=== PATIENT | male | born 1935 | race Caucasian/White ===

== ENCOUNTER → 2024-02-16 12:32 | Outpatient (REF) | payer OTHER, SELFPAY | LOC: HWRAD 12:32 | PROVIDERS: ATTENDING PHYSICIAN Specialist; FAMILY PHYSICIAN Family Medicine | DX: N18.4 Chronic kidney disease, stage 4 (severe) (principal) | CPT/HCPCS: 76770 ==

== ENCOUNTER → 2024-02-29 08:56 | Outpatient (REF) | payer OTHER, SELFPAY ==
[2024-02-29 09:28] LABS: Hematocrit 38.9 % (39.0-52.0); Hemoglobin 12.7 g/dL (13.0-18.0); Mean Corp Hgb Conc. 32.6 g/dL (33.0-37.0); Mean Corpuscular Hgb 26.8 pg (27.0-31.0); Mean Corpuscular Volume 82.1 fL (80.0-94.0); Nucleated Red Blood Cells % 0 % (-); Red Blood Cell Count 4.74 10^6/uL (4.70-6.10)
[2024-02-29 09:40] VITALS: BP 178/76; BP_SYST 73
[2024-02-29 09:43] LABS: INR 1.08; PT 13.8 Sec (11.4-14.6)
[2024-02-29 10:41] LABS: Mean Platelet Volume 10.3 fL (7.4-10.4); Platelet Count 90 10^3/uL (130-400)
[2024-02-29] MEDS: NSS (PRESERVATIVE FREE) 0.25 ML IV (10:58)
[2024-02-29] MEDS: FLUSH (NSS) 1 FLUSH IV (10:59)
[2024-02-29] MEDS: ATIVAN 0.5 MG IV (10:59)
[2024-02-29 11:50] VITALS: BP 189/84; BP_SYST 69
[2024-02-29 11:55] VITALS: BP 149/58; BP_SYST 66
[2024-02-29 12:00] VITALS: BP 159/76; BP_SYST 69
[2024-02-29 12:10] VITALS: BP 169/75; BP_SYST 75
[2024-02-29 12:27] VITALS: BP 169/75
[2024-02-29 12:58] LABS: Segmented Neutrophils 50 % (42-75)
[2024-02-29 12:59] LABS: Absolute Neutrophils -Man Diff 6.3 10^3/uL (1.4-6.5); Band Neutrophils 3 % (0-3); Blasts 4 % (-); Eosinophils 0 % (0-6); Lymphocytes 14 % (20-51); Metamyelocytes 6 % (-); Monocytes 21 % (2-9); Myelocytes 2 % (-); Promyelocytes 0 % (-)
[2024-02-29 13:00] LABS: Normal RBC Morphology Yes; Nucleated Red Blood Cells 3 (-); Platelets Checked Yes
[2024-02-29 13:01] LABS: Total Cells Counted 100
== END ==
LOC: RADI 08:56
PROVIDERS: ATTENDING PHYSICIAN Internal Medicine Hematology & Oncology; OTHER PHYSICIAN Physician Assistant; REFERRING PHYSICIAN Internal Medicine Critical Care Medicine
DX: C92.10 Chronic myeloid leukemia, BCR/ABL-positive, not having achieved remission (principal); D61.818 Other pancytopenia; D68.8 Other specified coagulation defects
CPT/HCPCS: 88305; 88311; 88312; 36415; 38222; 71046; 77012; 85025; 85610; 88313; 88341; 88342

== ENCOUNTER 2024-12-08 20:17 | Inpatient (IN) | payer OTHER, SELFPAY ==
[2024-12-08 12:17] VITALS: BP 130/50
--- NOTE | 2024-12-08 12:20 | ED.GENMED ---
ED Provider Triage
<Martinez Barreto PA-C - Last Filed: 12/08/24 12:21>
-
Patient seen by provider in Triage?: Seen in Triage
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 He notes that he is itchy all over but now his arms are starting to swell. Yesterday he could make it from 1 room to the other because he got fatigued and
short of breath. No chest pain.
Vital signs are stable through triage. Will start workup with EKG labs chest x-ray
Seen by healthcare provider triage but warrants further assessment
History of Present Illness
<Martinez Barreto PA-C - Last Filed: 12/08/24 12:21>
General
Chief Complaint: Skin Problem
Time Seen by Provider: 12/08/24 16:30
<David Brewer MD - Last Filed: 12/09/24 09:13>
General
Source: patient and spouse
Exam Limitations: none
History of Present Illness
History of Present Illness:
89-year-old male brought in for swelling of the arms bilaterally generalized itching. No chest pain shortness of breath abdominal pain or other complaints. Complicated medical history.
Past History
<Martinez Barreto PA-C - Last Filed: 12/08/24 12:21>
Past History
ED Past Medical History: Arrthythmia (SVT), Cancer (CML, thrombocytopenia), GERD (Hiatal hernia), HTN, Renal failure (Chronic kidney disease) and Other (CML)
ED Past Surgical History: Appendectomy and Orthopedic
Social History
Tobacco: Non-smoker
Alcohol: None
Personal:
Living: with family
Employment: Retired
Family History
Family History: Other (Noncontributory)
Review of Systems
<David Brewer MD - Last Filed: 12/09/24 09:13>
Review of Systems
Constitutional: Denies fever or chills
Respiratory: Reports no symptoms
Cardiac: Reports no symptoms
ABD/GI: Reports no symptoms
Phy Exam
<David Brewer MD - Last Filed: 12/09/24 09:13>
Physical Exam
Physical Exam:
GENERAL: Alert and oriented in no apparent distress
EYE: Orbits normal.
NECK: Supple
CARDIAC: Regular rate and rhythm without any obvious murmurs.
LUNGS: Clear breath sounds,normal
ABDOMEN: Soft, without focal tenderness or distention
NEUROLOGICAL: Alert and oriented , grossly non-focal
SKIN: Warm and dry, areas of ecchymosis to both arms. Mild area of erythema to the left mid arm. Multiple areas of excoriations.
MUSCULOSKELETAL: Edema left arm greater than right
PSYCH: Normal and appropriate interaction.
Course
<Martinez Barreto PA-C - Last Filed: 12/08/24 12:21>
Orders/Labs/Results
Orders:
Orders
12/08/24 12:19
CR Chest - 2 Views Urgent
Comment:
Reason For Exam: sob
12/08/24 12:22
Electrocardiogram (*1) Urgent
Reason for Study: Fatigue / Weakness
EKG- Treatment ONCE
12/08/24 12:31
Complete Blood Count/With Diff Urgent
Comprehensive Metabolic Panel Urgent
Manual Differential Urgent
NT-proBNP Urgent
12/08/24 Dinner
Potassium, 2 Gram
At Your Request: Full Participation
12/08/24 16:51
US Periph Venous UPPER Ext LT Urgent
Comment:
Reason For Exam: swelling
12/08/24 17:17
US Renal With Bladder Urgent
Comment: bladder not full ok, looking at ureteral jets
Reason For Exam: renal failure
12/08/24 18:44
Fibrinogen Routine
LDH Routine
PT/INR [Prothrombin Time] Routine
PTT Routine
Phosphorus Routine
Uric Acid Routine
12/08/24 19:20
Simmons Placement- Treatment ONCE
Reason for insertion: Acute Retention
12/08/24 19:53
Admit/Transfer Patient As Directed
Co-Sign Provider:
Level of Care: Inpatient admission
Assign to:: Medical/Surgical
Physician / Group: hospitalist
Diagnosis: cellulitis, kim, CML
Reason for Hospitalization: KIM
Expected length of stay greater than two midnights?: Yes
ELOS- Estimated Length of Stay in days: 2
I certify the patient meets the requirements for IP care: Yes
PRN Pain Medication Management As Directed
May give lesser potent ordered pain med per pt: Yes
preference::
Protocol:: Medication orders for pain may be administered in a
manner that supports deferring to patient preference
when the pt is:
- Requesting an ordered lesser potent pain medication.
Least to most potent pain medications are defined
as: acetaminophen < NSAID < tramadol < opioids
(morphine, oxycodone, hydromorphone).
- Requesting a lesser dose of the same medication IF
ORDERED.
- Requesting a less intrusive route of administration
if both routes are prescribed by the provider (PO <
IV).
12/08/24 19:55
Code Status As Directed
Resuscitation Status: Full Code
12/08/24 20:03
Hydroxyurea [Hydrea] 500 mg PO NOW STA
Sodium Zirconium Cyclosilicate [Lokelma] 10 gram PO NOW STA
12/08/24 20:18
Urinalysis Reflex To Culture Urgent
Date Specimen was Collected: 12/08/24
Time Specimen was Collected: 20:16
Urine Microscopic Reflex Cult Urgent
Urine Microscopic Routine
Date Specimen was Collected: 12/08/24
Time Specimen was Collected: 20:16
Urine Protein/Creat Ratio (Random) [Protein/Creat Ratio (Random)] Routine
Date Specimen was Collected: 12/08/24
Time Specimen was Collected: 20:17
Urine Sodium Routine
Date Specimen was Collected: 12/08/24
Time Specimen was Collected: 20:17
Urine Culture Routine
CANDY Source: Urine
Specimen Description:
Obtained by: Bladder
Date Specimen was Collected: 12/08/24
Time Specimen was Collected: 20:16
12/08/24 21:11
Acetaminophen [Tylenol] 650 mg PO Q4HPRN PRN
Bisacodyl [Dulcolax] 10 mg RECTAL [id number] PRN
HydrOXYZINE [Atarax] 12.5 mg PO TIDPRN PRN
Lactated Ringers [Lr] 1,000 ml IV 100 mls/hr
Metoprolol Xl [Toprol Xl] 25 mg PO BID
Ondansetron Injectable [Zofran] 4 mg IV Q6HPRN PRN
Polyethylene Glycol Powder [Miralax] 17 grams PO DAILYPRN PRN
12/08/24 21:11
Activity As Directed
Activity Level: With Assistance
Bladder Scan As Directed
Follow Bladder Retention/Intermittent Cath Algorithm?: Yes
PRN if no void in __ hours: 6
Frequency: Per Retention Algorithm
If Bladder Scan Result >: 400
then:: Straight cath
Straight Cath As Directed
Frequency: Per Retention Algorithm
Additional Instructions: straight cath as needed per acute urinary retention algorithm for 24 hrs
Additional Instructions: for bladder scan greater than 400 mL
Vital Signs As Directed
Frequency: Per unit guidelines
Pulse Ox/spot Check [RESP] Routine
Quantity: 1
DX Deep Vein Thrombosis Video Routine
12/08/24 22:00
Bacitracin/Polymyxin B [Polysporin Ointment] 1 applic TOPICAL BID
Docusate W/Senna [Senokot-S] 1 tablet PO HS
Gabapentin [Neurontin] 100 mg PO HS
12/08/24 23:55
BMP [Basic Metabolic Panel] Routine
CPK [Creatine Phosphokinase] Routine
12/09/24 00:00
Heparin 5,000 units SC Q8
12/09/24 06:19
Basic Metabolic Panel IN AM
Complete Blood Count/No Diff IN AM
Creatine Phosphokinase IN AM
Leukemia/Lymphoma Phenotyping [S] Urgent
12/09/24 08:00
Finasteride [Proscar] 5 mg PO DAILY
Hydroxyurea [Hydrea] 500 mg PO BID
12/09/24 10:00
CeFAZolin 1 GRAM [Ancef] 1 gram in 5 ml IV Q12H
Abnormal Lab Results
12/08/24 12/08/24
12:31 18:44
WBC 41.7 H* 10^3/uL
(4.8-10.8)
RBC 3.71 L 10^6/uL
(4.70-6.10)
Hgb 10.9 L g/dL
(13.0-18.0)
Hct 34.6 L %
(39.0-52.0)
MCHC 31.5 L g/dL
(33.0-37.0)
RDW 21.1 H %
(11.5-14.5)
MPV 10.5 H fL
(7.4-10.4)
Abs Neuts (Manual) 22.5 H 10^3/uL
(1.4-6.5)
Band Neutrophils 11 H %
(0-3)
Lymphocytes (Manual) 7 L %
(20-51)
Blast Cells 12 H* %
(-)
PT 15.3 H Sec
(11.4-14.6)
APTT 43.4 H Sec
(23.4-35.0)
Sodium 131 L mmol/L
(135-145)
Potassium 5.8 H mmol/L
(3.5-5.1)
Carbon Dioxide 17 L mmol/L
(22-30)
BUN 44 H mg/dl
(9-20)
Creatinine 4.6 H* mg/dL
(0.7-1.3)
Glucose 119 H mg/dl
(70-99)
Uric Acid 10.8 H mg/dl
(3.5-8.5)
Phosphorus 5.3 H mg/dl
(2.5-4.5)
Lactate Dehydrogenase 832 H U/L
(120-246)
12/08/24 12:31
12/08/24 12:31
Vital Signs
Initial and Last Documented VS:
Initial Vital Signs
Temp Pulse Resp BP Pulse Ox
98 F 83 16 130/50 93
12/08/24 12:17 12/08/24 12:17 12/08/24 12:17 12/08/24 12:17 12/08/24 12:17
Last Documented Vital Signs
Temp Pulse Resp BP Pulse Ox
98.2 F 81 18 114/90 95
12/09/24 08:20 12/09/24 09:06 12/09/24 08:20 12/09/24 09:06 12/09/24 08:20
<David Brewer MD - Last Filed: 12/09/24 09:13>
Orders/Labs/Results
Orders:
Orders
12/08/24 12:19
CR Chest - 2 Views Urgent
Comment:
Reason For Exam: sob
12/08/24 12:22
Electrocardiogram (*1) Urgent
Reason for Study: Fatigue / Weakness
EKG- Treatment ONCE
12/08/24 12:31
Complete Blood Count/With Diff Urgent
Comprehensive Metabolic Panel Urgent
Manual Differential Urgent
NT-proBNP Urgent
12/08/24 Dinner
Potassium, 2 Gram
At Your Request: Full Participation
12/08/24 16:51
US Periph Venous UPPER Ext LT Urgent
Comment:
Reason For Exam: swelling
12/08/24 17:17
US Renal With Bladder Urgent
Comment: bladder not full ok, looking at ureteral jets
Reason For Exam: renal failure
12/08/24 18:44
Fibrinogen Routine
LDH Routine
PT/INR [Prothrombin Time] Routine
PTT Routine
Phosphorus Routine
Uric Acid Routine
12/08/24 19:20
Simmons Placement- Treatment ONCE
Reason for insertion: Acute Retention
12/08/24 19:53
Admit/Transfer Patient As Directed
Co-Sign Provider:
Level of Care: Inpatient admission
Assign to:: Medical/Surgical
Physician / Group: hospitalist
Diagnosis: cellulitis, kim, CML
Reason for Hospitalization: KIM
Expected length of stay greater than two midnights?: Yes
ELOS- Estimated Length of Stay in days: 2
I certify the patient meets the requirements for IP care: Yes
PRN Pain Medication Management As Directed
May give lesser potent ordered pain med per pt: Yes
preference::
Protocol:: Medication orders for pain may be administered in a
manner that supports deferring to patient preference
when the pt is:
- Requesting an ordered lesser potent pain medication.
Least to most potent pain medications are defined
as: acetaminophen < NSAID < tramadol < opioids
(morphine, oxycodone, hydromorphone).
- Requesting a lesser dose of the same medication IF
ORDERED.
- Requesting a less intrusive route of administration
if both routes are prescribed by the provider (PO <
IV).
12/08/24 19:55
Code Status As Directed
Resuscitation Status: Full Code
12/08/24 20:03
Hydroxyurea [Hydrea] 500 mg PO NOW STA
Sodium Zirconium Cyclosilicate [Lokelma] 10 gram PO NOW STA
12/08/24 20:18
Urinalysis Reflex To Culture Urgent
Date Specimen was Collected: 12/08/24
Time Specimen was Collected: 20:16
Urine Microscopic Reflex Cult Urgent
Urine Microscopic Routine
Date Specimen was Collected: 12/08/24
Time Specimen was Collected: 20:16
Urine Protein/Creat Ratio (Random) [Protein/Creat Ratio (Random)] Routine
Date Specimen was Collected: 12/08/24
Time Specimen was Collected: 20:17
Urine Sodium Routine
Date Specimen was Collected: 12/08/24
Time Specimen was Collected: 20:17
Urine Culture Routine
CANDY Source: Urine
Specimen Description:
Obtained by: Bladder
Date Specimen was Collected: 12/08/24
Time Specimen was Collected: 20:16
12/08/24 21:11
Acetaminophen [Tylenol] 650 mg PO Q4HPRN PRN
Bisacodyl [Dulcolax] 10 mg RECTAL [id number] PRN
HydrOXYZINE [Atarax] 12.5 mg PO TIDPRN PRN
Lactated Ringers [Lr] 1,000 ml IV 100 mls/hr
Metoprolol Xl [Toprol Xl] 25 mg PO BID
Ondansetron Injectable [Zofran] 4 mg IV Q6HPRN PRN
Polyethylene Glycol Powder [Miralax] 17 grams PO DAILYPRN PRN
12/08/24 21:11
Activity As Directed
Activity Level: With Assistance
Bladder Scan As Directed
Follow Bladder Retention/Intermittent Cath Algorithm?: Yes
PRN if no void in __ hours: 6
Frequency: Per Retention Algorithm
If Bladder Scan Result >: 400
then:: Straight cath
Straight Cath As Directed
Frequency: Per Retention Algorithm
Additional Instructions: straight cath as needed per acute urinary retention algorithm for 24 hrs
Additional Instructions: for bladder scan greater than 400 mL
Vital Signs As Directed
Frequency: Per unit guidelines
Pulse Ox/spot Check [RESP] Routine
Quantity: 1
DX Deep Vein Thrombosis Video Routine
12/08/24 22:00
Bacitracin/Polymyxin B [Polysporin Ointment] 1 applic TOPICAL BID
Docusate W/Senna [Senokot-S] 1 tablet PO HS
Gabapentin [Neurontin] 100 mg PO HS
12/08/24 23:55
BMP [Basic Metabolic Panel] Routine
CPK [Creatine Phosphokinase] Routine
12/09/24 00:00
Heparin 5,000 units SC Q8
12/09/24 06:19
Basic Metabolic Panel IN AM
Complete Blood Count/No Diff IN AM
Creatine Phosphokinase IN AM
Leukemia/Lymphoma Phenotyping [S] Urgent
12/09/24 08:00
Finasteride [Proscar] 5 mg PO DAILY
Hydroxyurea [Hydrea] 500 mg PO BID
12/09/24 10:00
CeFAZolin 1 GRAM [Ancef] 1 gram in 5 ml IV Q12H
Abnormal Lab Results
12/08/24 12/08/24
12:31 18:44
WBC 41.7 H* 10^3/uL
(4.8-10.8)
RBC 3.71 L 10^6/uL
(4.70-6.10)
Hgb 10.9 L g/dL
(13.0-18.0)
Hct 34.6 L %
(39.0-52.0)
MCHC 31.5 L g/dL
(33.0-37.0)
RDW 21.1 H %
(11.5-14.5)
MPV 10.5 H fL
(7.4-10.4)
Abs Neuts (Manual) 22.5 H 10^3/uL
(1.4-6.5)
Band Neutrophils 11 H %
(0-3)
Lymphocytes (Manual) 7 L %
(20-51)
Blast Cells 12 H* %
(-)
PT 15.3 H Sec
(11.4-14.6)
APTT 43.4 H Sec
(23.4-35.0)
Sodium 131 L mmol/L
(135-145)
Potassium 5.8 H mmol/L
(3.5-5.1)
Carbon Dioxide 17 L mmol/L
(22-30)
BUN 44 H mg/dl
(9-20)
Creatinine 4.6 H* mg/dL
(0.7-1.3)
Glucose 119 H mg/dl
(70-99)
Uric Acid 10.8 H mg/dl
(3.5-8.5)
Phosphorus 5.3 H mg/dl
(2.5-4.5)
Lactate Dehydrogenase 832 H U/L
(120-246)
12/08/24 12:31
12/08/24 12:31
Vital Signs
Initial and Last Documented VS:
Initial Vital Signs
Temp Pulse Resp BP Pulse Ox
98 F 83 16 130/50 93
12/08/24 12:17 12/08/24 12:17 12/08/24 12:17 12/08/24 12:17 12/08/24 12:17
Last Documented Vital Signs
Temp Pulse Resp BP Pulse Ox
98.2 F 81 18 114/90 95
12/09/24 08:20 12/09/24 09:06 12/09/24 08:20 12/09/24 09:06 12/09/24 08:20
<David Brewer MD - Last Filed: 12/09/24 09:13>
MDM/Problems Addressed
Differential Diagnosis Includes:
Complicated patient with multiple issues. Acute on chronic renal failure. Post renal component. Simmons to be placed. Possible cellulitis of the left arm. Ancef ordered. Possible CLL/blast issue. This is being addressed by hematology oncology.
<David Brewer MD - Last Filed: 12/09/24 09:13>
*Pulse Oximetry
Patient hypoxic: no
Comment: No DVT left arm. Chronic renal disease. Negative chest x-ray
*EKG
Interpreted by ED Provider?: Yes
Interpretation: normal
Comparison EKG: no changes
Heart Rate: 82
Rate: normal
Rhythm: sinus
[place]: normal axis
Interval: normal interval
QRS Pattern: normal QRS
Ischemia: no ischemia
*Critical Care Note
Total Time (30-74mins, 75-104mins- exclusive of procedures): Not Applicable
<David Brewer MD - Last Filed: 12/09/24 09:13>
Update Note
Update Note:
Discussed with hematology oncology. Discussed with nephrology. Discussed with hospitalist. Family updated.
ED Attending Note
<Martinez Barreto PA-C - Last Filed: 12/08/24 12:21>
-
Portions of this chart may have been created with voice recognition software.� Occasional wrong word or��sound alike� substitutions may have occurred due to the inherent limitations of voice recognition software.
Discharge Plan
Departure
Patient Disposition: Admit
Date of Disposition: 12/08/24
Time of Disposition: 19:25
Presentation/result/management discussed w/ accepting MD/DO: Oncology/nephrology
Discharge Problem:
Acute renal failure, Chronic renal insufficiency, Possible blast crisis, Urinary retention, Cellulitis left arm
Interventions
Interventions:
*Risk Screen - Suicide Last Done: 12/08/24 12:17
*Neglect/Abuse Screening Last Done: 12/08/24 12:17
ED- Fall Risk Assessment Last Done: 12/08/24 21:15
*Nursing Disposition Last Done: 12/09/24 00:19
ED-Skin Assessment Last Done: 12/08/24 21:15
Discharge Date and Time
Discharge Date/Time: 12/09/24 00:19
[2024-12-08 12:52] LABS: Hematocrit 34.6 % (39.0-52.0); Hemoglobin 10.9 g/dL (13.0-18.0); Mean Corp Hgb Conc. 31.5 g/dL (33.0-37.0); Mean Corpuscular Hgb 29.4 pg (27.0-31.0); Mean Corpuscular Volume 93.3 fL (80.0-94.0); Mean Platelet Volume 10.5 fL (7.4-10.4); Platelet Count 135 10^3/uL (130-400); Red Blood Cell Count 3.71 10^6/uL (4.70-6.10); Red Cell Dist. Width 21.1 % (11.5-14.5); White Blood Cell Count 41.7 10^3/uL (4.8-10.8)
[2024-12-08 13:03] LABS: ALT (SGPT) 18 U/L (0-50); AST (SGOT) 29 U/L (17-59); Albumin 4.2 g/dl (3.5-5.0); Alkaline Phosphatase 118 U/L (38-126); Blood Urea Nitrogen 44 mg/dl (9-20); Calcium 8.9 mg/dl (8.4-10.2); Carbon Dioxide 17 mmol/L (22-30); Chloride 100 mmol/L (98-107); Glucose 119 mg/dl (70-99); Potassium 5.8 mmol/L (3.5-5.1); Sodium 131 mmol/L (135-145); Total Bilirubin 0.5 mg/dl (0.2-1.3); Total Protein 7.3 g/dl (6.3-8.2)
[2024-12-08 13:09] LABS: NT-proBNP 578 pg/ml
[2024-12-08 14:12] LABS: Absolute Neutrophils -Man Diff 22.5 10^3/uL (1.4-6.5); Band Neutrophils 11 % (0-3); Lymphocytes 7 % (20-51); Segmented Neutrophils 43 % (42-75)
[2024-12-08 14:13] LABS: Eosinophils 1 % (0-6); Metamyelocytes 8 % (-); Monocytes 9 % (2-9); Myelocytes 9 % (-); Platelets Checked Yes
[2024-12-08 14:14] LABS: Anisocytosis 1+; Hypochromasia 1+; Normal RBC Morphology No; Ovalocytes 1+; Polychromasia 1+; Total Cells Counted 100
[2024-12-08 14:17] LABS: Blasts 12 % (-)
[2024-12-08 17:30] VITALS: BP 136/55
[2024-12-08 19:03] LABS: INR 1.18; PT 15.3 Sec (11.4-14.6)
[2024-12-08 19:04] LABS: APTT 43.4 Sec (23.4-35.0); Fibrinogen 279 MG/DL (199-459)
[2024-12-08 19:14] LABS: LDH 832 U/L (120-246); Phosphorus 5.3 mg/dl (2.5-4.5); Uric Acid 10.8 mg/dl (3.5-8.5)
--- NOTE | 2024-12-08 19:35 | HPS.HSE ---
Family Physician
-
Family Physician: Christophe Navas
Chief Complaint
-
Left upper extremity swelling and redness
History of Present Illness
89-year-old male with past medical history significant for CML, hypertension, CKD stage IV, chronic thrombocytopenia and SVT will presents to the emergency department with
redness and swelling of the left upper extremity.
Patient reports onset of HTN about 3 weeks ago. Reports generalized itchiness of her lower extremities. A close. Itching and has several breaks in the skin due to the itching. He denies any new medication changes. He denies any new exposures.
He denies any recent travel.
Family reports that the patient had similar itching episode about 10 years ago with extensive workup. There was no diagnosis and this resolved on its own. He saw dermatology on Wednesday 5 days ago and was told that this episode was different from
his prior itching episode and likely due to his renal dysfunction.
Over the last 4 days he has been developing increasing swelling and redness in the arm. He denies any tenderness. He denies any fevers or chills. He has intermittent numbness in the hands bilaterally. He denies any ankle swelling, abdominal
distention, dysuria or hematuria.
In the emergency department the patient was hemodynamically stable and afebrile blood pressure 136/55, temp 98.5 satting 99% on room air. Had a chest x-ray showing no acute infiltrate with stable basilar interstitial fibrosis. Doppler ultrasound
of the left upper extremity was negative for DVT. He had a renal u/s which showed bilateral cortical thinning, a partially filled bladder which appears grossly unremarkable, no hydronephrosis, no renal calculi. Bilateral ureterovesicular jets were
not visualized. CBC notable for a leukocytosis to 41,000, hemoglobin 10.9 and platelet count of 135. He had 12% blast. PT/INR was normal. He has a hyperkalemia to 5.8, BUN 44 creatinine 4.6. Uric acid was 10.8. LDH 832.
Medical History
Past Medical History
Past Medical History: Reports Arrhythmia (SVT), Cancer (CML), GERD, HTN and Renal Failure (CKD bl Cr 2.5)
Past Surgical History: Reports Appendectomy and Orthopedic
Social History
Tobacco: Non-smoker
Alcohol: None
Drug: None
Personal:
Living: With Family
Employment: Retired
Family History
Family History: Not pertinent
Allergies / Home Medications
Allergies reflects when Allergies were last updated in [employer].
Home Medications with original date entered in [employer]
Allergy/Medication List:
Allergies
Allergy/AdvReac Type Severity Reaction Status Date / Time
Iodinated Contrast Media Allergy Hives Verified 12/08/24 12:17
Home Medications
metoprolol succinate 25 mg tablet,extended release 24 hr 25 mg PO BID Blood pressure 10/24/22
sennosides 8.6 mg-docusate sodium 50 mg tablet (Colace 2-In-1) 1 tab-cap PO DAILY 02/29/24
vitamin K 1 tab PO DAILY 02/29/24
Review of Systems
-
History Source: Patient and Family
Constitutional: Reports No Symptoms
EENT: Reports No Symptoms
Respiratory: Reports No Symptoms
Cardiac: Reports No Symptoms
Abdomen/GI: Reports No Symptoms
: Reports No Symptoms
Musculoskeletal: Reports No Symptoms
Skin: Reports Itching and Rash
Neurological: Reports No Symptoms
Endocrine: Reports No Symptoms
Hematologic/Lymphatic: Reports No Symptoms
Psych: Reports No Symptoms
Physical Exam
Vital Signs
Vital Signs
Temp Pulse Resp BP Pulse Ox
98 F 79 19 136/55 99
12/08/24 12:17 12/08/24 17:30 12/08/24 17:30 12/08/24 17:30 12/08/24 17:30
Physical Exam
General: Well Developed, Well Nourished and No Apparent Distress
HEENT: NormoCephalic, Anicteric, Moist mucous membranes and Atraumatic
Respiratory: Clear
Cardiac: S1/S2 and Regular Rhythm
Breast: Deferred by me
GI: Soft, Non Tender, Non Distended and Normal Bowel Sounds
Rectal: Brown
Genito-urinary: Deferred by me
Musculoskeletal: No Clubbing, No Cyanosis and Edema, Left Upper Extremity (1+)
Skin: Warm and Rash (extensive erythema with some petechia in the LUE, with edema, no TTP to palpation, pruritic)
Neuro: AO x 3 and Nonfocal/grossly intact
Psych: Calm
Laboratory Results
-
12/08/24 12:31
12/08/24 12:31
Laboratory Results
PT 15.3 Sec (11.4-14.6) H 12/08/24 18:44
INR 1.18 12/08/24 18:44
APTT 43.4 Sec (23.4-35.0) H 12/08/24 18:44
Total Bilirubin 0.5 mg/dl (0.2-1.3) 12/08/24 12:31
AST 29 U/L (17-59) 12/08/24 12:31
ALT 18 U/L (0-50) 12/08/24 12:31
Alkaline Phosphatase 118 U/L (38-126) 12/08/24 12:31
Impression/Plan
-
IMPRESSION:
89 y.o male with h/o HTN, CKD, and CML presenting with LUE edema and erythema after several weeks of generalized pruritus found to have significant rise in WBC to 41 from 12. Also found to have KIM with doubling of cr to 4.5 from 2.5. The rash
appears to be dermatitis but cannot rule out cellulitis.
PLAN:
1. Arm swelling and erythema w/ leukocytosis - Possible cellulitis. No signs of sepsis. No DVT in the arm.
- admit to med/surg
- start iv cefazolin
- keep arm elevated
- supportive care with anti-itching therapies
- id consult
2. Pruritis and leukocytosis with 12% blasts, LDH elevated, raising concern for accelerated CML versus infection.
- appreciate oncology input
- flow cytometry (leukemia/lymphoma phenotyping)
- start hydroxyuria 500 mg bid
- gabapentin 100mg HS for now
- atarax prn itching
- Oncology consultation
3. KIM on CKD - Appears euvolemic. No outlet obstruction on renal u/s. bilateral ureterovesical jets not visualized suggesting severe retention. No PVR on b/s. Uric acid only 10.8. Mild hyperkalemia. Possible post-renal versus less likely TLS
and dehydration
- check cpk, u/a and urine protein
- hold lisinopril
- bladder scans to rule out retention,
- LR hydration for now
- avoid nephrotoxins
- nephrology consultation
- lokelma x 1 tonight for hyperkalemia
4. HTN
- hold lisinopril
- continue metoprolol
DVT PPX - heparin sq
Code status - full code
[2024-12-08 20:27] LABS: Urine Albumin Trace (Neg - Trace); Urine Bilirubin Negative (Negative); Urine Character Clear (Clear); Urine Color Yellow; Urine Glucose Negative (Negative); Urine Ketone Negative (Negative); Urine Leukocyte Negative (Negative); Urine Nitrite Negative (Negative); Urine Occult Blood Trace (Negative); Urine Specific Gravity 1.015 (<1.030); Urine Urobilinogen Negative (Neg - 1+)
[2024-12-08] MEDS: LOKELMA 10 GRAM PO (20:37)
[2024-12-08] MEDS: HYDREA 500 MG PO (20:37)
[2024-12-08 21:02] LABS: Urine Squamous Cell >30 /LPF (Few)
[2024-12-08 21:03] LABS: Urine Red Blood Cell 0-2 /HPF (0-2); Urine White Cell 0-2 /HPF (0-5)
[2024-12-08 21:35] LABS: Protein/creatinine Ratio 0.4; Urine Protein 47 mg/dl; Urine Sodium 11 mmol/L (30-90)
[2024-12-08] MEDS: POLYSPORIN OINTMENT 1 APPLIC TOPICAL (21:37)
[2024-12-08] MEDS: LR 1000 IV (21:38)
[2024-12-08] MEDS: TOPROL XL 25 MG PO (21:39)
[2024-12-08] MEDS: SENOKOT-S 1 TABLET PO (21:39)
[2024-12-08] MEDS: ANCEF 5 IV (21:39)
[2024-12-08] MEDS: ATARAX 12.5 MG PO (21:44)
[2024-12-08 21:48] VITALS: BP 92/76
[2024-12-08 22:12] VITALS: BP 134/52
[2024-12-08] MEDS: NEURONTIN 100 MG PO (22:41)
[2024-12-09] MEDS: HEPARIN 5000 UNITS SC ×4 (00:32→23:19)
[2024-12-09 01:06] VITALS: BP 149/69; BMI 32.4
[2024-12-09 01:40] LABS: Blood Urea Nitrogen 47 mg/dl (9-20); Calcium 8.5 mg/dl (8.4-10.2); Carbon Dioxide 18 mmol/L (22-30); Chloride 101 mmol/L (98-107); Creatine Phosphokinase 121 U/L (55-170); Estimated Creatinine Clearance 12 ml/min; Glucose 107 mg/dl (70-99); Potassium 5.2 mmol/L (3.5-5.1); Sodium 132 mmol/L (135-145)
[2024-12-09] MEDS: ATARAX 12.5 MG PO ×2 (01:52→10:12)
[2024-12-09 06:54] LABS: Hematocrit 28.1 % (39.0-52.0); Hemoglobin 9.2 g/dL (13.0-18.0); Mean Corp Hgb Conc. 32.7 g/dL (33.0-37.0); Mean Corpuscular Volume 91.5 fL (80.0-94.0); Mean Platelet Volume 10.1 fL (7.4-10.4); Platelet Count 108 10^3/uL (130-400); Red Blood Cell Count 3.07 10^6/uL (4.70-6.10); Red Cell Dist. Width 20.6 % (11.5-14.5); White Blood Cell Count 31.7 10^3/uL (4.8-10.8)
[2024-12-09 07:04] LABS: Blood Urea Nitrogen 46 mg/dl (9-20); Calcium 8.1 mg/dl (8.4-10.2); Carbon Dioxide 18 mmol/L (22-30); Chloride 102 mmol/L (98-107); Creatine Phosphokinase 108 U/L (55-170); Estimated Creatinine Clearance 13 ml/min; Glucose 88 mg/dl (70-99); Potassium 4.9 mmol/L (3.5-5.1); Sodium 131 mmol/L (135-145); eGFR 12.23
--- NOTE | 2024-12-09 07:22 | CON.ONC ---
Addendum entered and electronically signed by Eunice Lloyd MD 12/09/24 15:17:
Pt seen and examined, chart reviewed.
Progressive leukocytosis likely due to infection.
Blast increase reactive.
No evidence of tumor lysis.
Hydrea not needed, d/c.
Thank you for consult, will follow along with you.
Original Note:
Impression
Impression
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
pathology smear review with 12% blasts, ANC 22.5
KIM on CKD
acute on chronic anemia likely multifactorial with cellulitis, renal insufficiency, dilution, and dose of Hydrea. With normal LFTs, hemolysis less likely
Plan
Plan
Abx per primary service
f/u peripheral flow
Daily CBC, suspect acute on chronic leukocytosis in setting of infection and will improve with treatment of infection
f/u ID consult, f/u nephrology consult
check iron studies, b12, folate, retic
Awaiting Dr. Alesia Tang input to decide if hydrea should be continued
Patient History
History of Present Illness
89yo M with CMML on observation with Dr. Summers who presented with LUE redness and swelling. His LUE symptoms began approximately 4-5 days ago. He denies any trauma or injury to his LUE. He denies fever or chills. CBC notable for a leukocytosis
to 41,000, hemoglobin 10.9 and platelet count of 135, potassium 5.8, BUN 44 creatinine 4.6, Uric acid was 10.8, LDH 832. LUE negative for DVT. He has been admitted, started on IVF, IV abx, and given 1 dose of hydrea 500mg PO.
Clinically, he denies fever, chills, cough, chest pain, sob, tripp, n/v/d/c, abdominal pain, unintentional weight loss, or headaches. 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 He continues with pruritis.
Past-Medical/Surgical History
PMH CMML 2017, melanoma 2011, HTN, CKD, obesity, HLD, DM2
PSH melanoma excision, cataracts, TKR, appendectomy, right knee meniscus,
Family: sibling with breast cancer
Social quit smoking 2004, denies ETOH or recreational drugs. Lives with , retired.
Patient Medication
�Medication �Instructions �Recorded �Confirmed �Last Taken �Type
metoprolol succinate 25 mg 25 mg PO BID Blood pressure 10/24/22 12/08/24 02/29/24 History
tablet,extended release 24 hr
sennosides 8.6 mg-docusate sodium 1 tab-cap PO HS 02/29/24 12/08/24 02/28/24 History
50 mg tablet (Colace 2-In-1)
vitamin K2 (MK-4) 100 mcg tablet 100 mcg PO HS 02/29/24 12/08/24 Unknown History
finasteride 5 mg tablet 5 mg PO DAILY 12/08/24 12/08/24 Unknown History
lisinopril 5 mg tablet 5 mg PO DAILY 12/08/24 12/08/24 Unknown History
neomycin-bacitracn Zn-polymyx 3.5 1 applic topical BID around 12/08/24 12/08/24 Unknown History
mg-400 unit-5,000 unit/gram top nostrils
oint (Neosporin ([id number]))
sodium chloride-aloe vera nasal 1 applic topical BID nasal dryness 12/08/24 12/08/24 Unknown History
gel (Saline Nasal (aloe vera) gel)
Active Medications
Generic Name Dose Route Start Last Admin
Trade Name Freq PRN Reason Stop Dose Admin
Acetaminophen 650 mg 12/08/24 21:11
Acetaminophen 325 Mg Tablet PO 01/05/25 21:10
Q4HPRN PRN
mild pain/MELARA/temp> 100.4F
Bacitracin/Polymyxin B Sulfate 1 applic 12/08/24 22:00 12/08/24 21:37
Bacitracin/Polymyxin B (Ointment) Unit Dose Packet TOPICAL 1 applic
BID FLOWER Administration
Bisacodyl 10 mg 12/08/24 21:11
Bisacodyl 10 Mg Rectal Suppository RECTAL 01/05/25 21:10
[id number] PRN
constipation
Finasteride 5 mg 12/09/24 08:00
Finasteride 5 Mg Tablet PO 01/06/25 07:59
DAILY FLOWER
Gabapentin 100 mg 12/08/24 22:00 12/08/24 22:41
Gabapentin 100 Mg Capsule PO 01/05/25 21:59 100 mg
HS FLOWER Administration
Heparin Sodium 5,000 units 12/09/24 00:00 12/09/24 00:32
Heparin 5,000 Units/Ml 1 Ml Vial SC 01/06/25 00:00 5,000 units
Q8 FLOWER Administration
Hydroxyurea 500 mg 12/09/24 08:00
Hydroxyurea 500 Mg Capsule PO 01/06/25 07:59
BID FLOWER
Hydroxyzine HCl 12.5 mg 12/08/24 21:11 12/09/24 01:52
Hydroxyzine 25 Mg Tablet PO 01/05/25 21:10 12.5 mg
TIDPRN PRN Administration
itching
Cefazolin Sodium 1 gram in 5 mls @ 60 mls/hr 12/09/24 10:00
Ancef IV
Q12H FLOWER
Metoprolol Succinate 25 mg 12/08/24 21:11 12/08/24 21:39
Metoprolol 25 Mg Extended Release Tablet PO 01/05/25 21:10 25 mg
BID FLOWER Administration
Ondansetron HCl 4 mg 12/08/24 21:11
Ondansetron 4 Mg/2 Ml Vial IV 01/05/25 21:10
Q6HPRN PRN
nausea and vomiting
Polyethylene Glycol 17 grams 12/08/24 21:11
Polyethylene Glycol Powder 17 Grams Packet PO 01/05/25 21:10
DAILYPRN PRN
constipation
Senna/Docusate Sodium 1 tablet 12/08/24 22:00 12/08/24 21:39
Docusate W/Senna (Mame-Colace) Tablet PO 01/05/25 21:59 1 tablet
HS FLOWER Administration
Sodium Chloride 0 flush 12/08/24 21:00
Sodium Chloride 0.9% (Flush) Syringe IV 01/05/25 20:59
PER PROTOCOL FLOWER
Review of Systems
-
ROS notable for HPI, otherwise negative
Physical Exam
-
General: No Apparent Distress
HEENT: Moist Mucous Membranes; Negative Jaundice
Cardiology: Normal Sinus Rhythm
Pulmonary: Clear
GI: Soft
Extremities: Other (LUE extensive erythema, petechia rash, and +1 edema)
Neurology: Non Focal
Skin: Warm
Psych: Calm
Labs
Lab Results
WBC 31.7 10^3/uL (4.8-10.8) H 12/09/24 06:19
RBC 3.07 10^6/uL (4.70-6.10) L 12/09/24 06:19
Hgb 9.2 g/dL (13.0-18.0) L 12/09/24 06:19
Hct 28.1 % (39.0-52.0) L 12/09/24 06:19
MCV 91.5 fL (80.0-94.0) 12/09/24 06:19
MCH 30.0 pg (27.0-31.0) 12/09/24 06:19
MCHC 32.7 g/dL (33.0-37.0) L 12/09/24 06:19
RDW 20.6 % (11.5-14.5) H 12/09/24 06:19
Plt Count 108 10^3/uL (130-400) L 12/09/24 06:19
MPV 10.1 fL (7.4-10.4) 12/09/24 06:19
Creatinine 4.4 mg/dL (0.7-1.3) H* 12/09/24 06:19
Vital Signs
Vital Signs
Temp Pulse Resp BP Pulse Ox
98.4 F 101 18 149/69 95
12/09/24 01:06 12/09/24 01:06 12/09/24 01:06 12/09/24 01:06 12/09/24 01:06
[2024-12-09 07:56] LABS: Reticulocyte Count 5.2 % (0.4-2.8)
[2024-12-09 08:20] VITALS: BP 99/54
[2024-12-09 08:21] LABS: Iron 247 ug/dl (49-181)
[2024-12-09 08:29] LABS: Percent Saturation 96 % (20-50); Total Iron Binding Capacity 256 ug/dl (261-462)
[2024-12-09] MEDS: PROSCAR 5 MG PO (09:06)
[2024-12-09] MEDS: TOPROL XL 25 MG PO ×2 (09:06→20:04)
[2024-12-09] MEDS: POLYSPORIN OINTMENT 1 APPLIC TOPICAL ×2 (09:07→19:53)
[2024-12-09 09:36] LABS: Folate 6.7 ng/ml (2.76-20); Vitamin B12 > 1000 pg/ml (239-931)
[2024-12-09] MEDS: ANCEF 5 IV ×2 (11:51→22:54)
[2024-12-09] MEDS: FLUSH (NSS) 2 FLUSH IV (11:52)
--- NOTE | 2024-12-09 13:44 | W.CON.NEPH ---
Consultation
-
Date/Time Consultation Requested: 12/09/2024 8:00 AM
Date/Time Consultation Performed: 12/09/2024 1:45 pm
Requesting Provider: Dr. Tristan
Performing Provider: Dr. Shetty
Reason for Consultation: Acute kidney injury
Medical History
-
Chief Complaint: Acute kidney injury
History of Present Illness:
The patient is an 89-year-old male with a past medical history of CKD stage IV maintains a baseline creatinine of around 2.6. He is maintained on finasteride in the setting of his BPH. He has a history of CML and thrombocytopenia. He presented to
the hospital for left upper extremity redness and swelling. He noted significant pruritus as well on presentation to the hospital he was in acute renal failure with a creatinine of 4.6 and was hyperkalemic with a potassium of 5.8 with an associated
metabolic acidosis. Nephrology was then consulted to see the patient.
Past Medical History
CML
CKD stage IV with baseline creatinine of 2.9
Thrombocytopenia
BPH
History of SVT
Hypertension
Appendectomy
Social History
Tobacco: Non-Smoker
Alcohol: None
Personal: Single
Family History
no CKD
Allergies / Home Medications
Allergy/AdvReac Type Severity Reaction Status Date / Time
Iodinated Contrast Media Allergy Hives Verified 12/08/24 12:17
�Medication �Instructions �Recorded �Confirmed �Type
metoprolol succinate 25 mg 25 mg PO BID Blood pressure 10/24/22 12/08/24 History
tablet,extended release 24 hr
sennosides 8.6 mg-docusate sodium 1 tab-cap PO HS 02/29/24 12/08/24 History
50 mg tablet (Colace 2-In-1)
vitamin K2 (MK-4) 100 mcg tablet 100 mcg PO HS 02/29/24 12/08/24 History
finasteride 5 mg tablet 5 mg PO DAILY 12/08/24 12/08/24 History
lisinopril 5 mg tablet 5 mg PO DAILY 12/08/24 12/08/24 History
neomycin-bacitracn Zn-polymyx 3.5 1 applic topical BID around 12/08/24 12/08/24 History
mg-400 unit-5,000 unit/gram top nostrils
oint (Neosporin ([id number]))
sodium chloride-aloe vera nasal 1 applic topical BID nasal dryness 12/08/24 12/08/24 History
gel (Saline Nasal (aloe vera) gel)
Review of Systems
-
History Source: Patient
: Other (Urinary retention)
Musculoskeletal: Other (Left upper extremity edema and erythema)
Skin: Other (Pruritus)
Physical Exam
Vital Signs
Vital Signs
Temp Pulse Resp BP Pulse Ox
98.2 F 81 18 114/90 95
12/09/24 08:20 12/09/24 09:06 12/09/24 08:20 12/09/24 09:06 12/09/24 08:20
Lab Results
12/09/24 06:19
12/09/24 06:19
WBC 31.7 10^3/uL (4.8-10.8) H 12/09/24 06:19
RBC 3.07 10^6/uL (4.70-6.10) L 12/09/24 06:19
Hgb 9.2 g/dL (13.0-18.0) L 12/09/24 06:19
Hct 28.1 % (39.0-52.0) L 12/09/24 06:19
Plt Count 108 10^3/uL (130-400) L 12/09/24 06:19
Sodium 131 mmol/L (135-145) L 12/09/24 06:19
Potassium 4.9 mmol/L (3.5-5.1) 12/09/24 06:19
Chloride 102 mmol/L (98-107) 12/09/24 06:19
Carbon Dioxide 18 mmol/L (22-30) L 12/09/24 06:19
BUN 46 mg/dl (9-20) H 12/09/24 06:19
Creatinine 4.4 mg/dL (0.7-1.3) H* 12/09/24 06:19
eGFR 12.23 12/09/24 06:19
Glucose 88 mg/dl (70-99) 12/09/24 06:19
Calcium 8.1 mg/dl (8.4-10.2) L 12/09/24 06:19
Phosphorus 5.3 mg/dl (2.5-4.5) H 12/08/24 18:44
Hlb-A-Rtvaanhowvt Pept 578 pg/ml 12/08/24 12:31
Albumin 4.2 g/dl (3.5-5.0) 12/08/24 12:31
Physical Exam
General: AOx3, Nontoxic , NAD
HEENT: PERRL, EOMI, Anicteric, Conjunctivae Clear, Ear/Nose Intact, Hearing Normal, Oropharynx Clear/Moist, Dentition Intact, Facial Symmetry, Neck Supple, Neck: Trachea Midline, No JVD and No Thyromegaly, no Bruits
Respiratory: Coarse with decreased breath sounds over the bases and dry crackles, bilateral wheezing noted
Cardiac: S1/S2 and Regular Rate/Rhythm
Breast: Deferred by me
Abdomen: Soft, Nontender, Nondistended, Normal Bowel Sounds and No Hepatosplenomegaly
Rectal: Deferred by Provider
Genito-urinary: No Costovertebral Tenderness
Extremities: No Clubbing, No Cyanosis and No Edema of lower extremities but LUE edema and erythema, also to a lesser extent right forearm edema
Skin: Mottled appearance of left lower extremity. Left upper extremity erythematous lateral wound noted
Neuro: Nonfocal/Grossly Intact, CN II-XII (Intact) and Strength (Musculoskeletal exam 5 out of 5 both upper and lower extremities)
Hematologic/Lymphatic: No Cervical Lymphadenopathy, No Submandibular Lymphadenopathy and No Supraclavicular Lymphadenopathy
Psych: Mood/afflect pleasant, Insight/judgement good and Appropriate
Vascular: plus 1 pedal and radial pulses
Data Reviewed
-
Radiology: Image Personally Visualized and interpreted (Chest x-ray personally reviewed no evidence of congestive heart failure or cardiomegaly or pneumonic process)
CT Scan: Report Reviewed by me (Notable for renal cortical thinning bilaterally no hydronephrosis severe urinary retention)
Labs: Labs Reviewed by me ([facility] CBC)
Old Records: Reviewed (Reviewed recent lab testing from August 2024 creatinine 2.6)
Assessment/Plan
-
Impression:
KIM
Hyperkalemia
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
Pruritus
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
Left upper extremity edema and erythema
BPH
HTN
Hyponatremia
Interstitial fibrosis
UA (400mg protein)/no blood trace albumin
Plan:
KIM/Hyperkalemia/Metabolic Acidosis
-pfeiffer catheter now in for urinary retention
-Fractional secretion of sodium was also low consistent with prerenal stimulus
-Kidney and bladder ultrasound did not reveal hydronephrosis but notable for chronic renal cortical thinning
-Holding lisinopril
-Will add sodium bicarbonate to combat metabolic acidosis which should also improve hyperkalemia
-Currently receiving lactated Ringer's IVFs
-Phosphorus level 5.3 not really high enough to potentiate pruritus, nor is BUN
-Patient would not be a clinically viable hemodialysis candidate given advanced age and profound hematologic comorbidities
--- NOTE | 2024-12-09 15:02 | CON.ID ---
Addendum entered and electronically signed by Paulina Mars MD 12/10/24 12:04:
correction - patient has history of CMML not CML
Original Note:
Consultation
-
Date/Time Consultation Requested: 12/08/24 22:30
Date/Time Consultation Performed: 12/09/24 15:17
Requesting Provider: Dr Haley
Performing Provider: Dr Mars
Reason for Consultation: cellulitis
Chief Complaint / Past History
Chief Complaint
Left upper extremity swelling and redness
History of Present Illness
Mr Hanna is an 89 year old male with history of CML, CKD IV who presented here last night for Left UE swelling and redness. Also generalized pruritus. No fevers or chills.
In the emergency department the patient was hemodynamically stable and afebrile blood pressure 136/55, temp 98.5 saturating 99% on room air. chest x-ray: no acute infiltrate with stable basilar interstitial fibrosis. Doppler ultrasound of the left
upper extremity was negative for DVT. Renal u/s no hydronephrosis, no renal calculi. CBC notable for a leukocytosis to 41,000 today 31, hemoglobin 10.9 and platelet count of 135. He had 12% blast. PT/INR was normal. He has a hyperkalemia to 5.8
today 4.9, BUN 44 creatinine 4.6 today 4.4 Uric acid was 10.8. LDH 832. Seen by oncology - blasts felt to be reactive, kailee joy. Currently on cefazolihn
Past History
Additional Past Medical History:
(SVT), Cancer (CML), GERD, HTN and Renal Failure (CKD bl Cr 2.5)
Additional Past Surgical History:
Appendectomy and Orthopedic
Allergy History:
Iodinated Contrast Media Allergy (Verified 12/08/24 12:17)
Hives
Medications Reviewed: Yes
Social History
Tobacco: Non-Smoker
Alcohol: None
Drug: None
Family History
Family History: Not Pertinent
Review of Systems
Review of Systems
General: Negative Fever or Chills
All systems: All other systems were reviewed and were negative
Vital Signs
Temp Pulse Resp BP Pulse Ox
98.2 F 81 18 114/90 95
12/09/24 08:20 12/09/24 09:06 12/09/24 08:20 12/09/24 09:06 12/09/24 08:20
Physical Exam
Physical Exam
Constitutional: No Acute Distress
Cardiovascular: Regular Rate and S1/S2; Negative Murmur or Rub
Pulmonary: Clear and Symmetric; Negative Wheezes, Rales or Rhonchi
Gastrointestinal: Soft, Non Tender, Non Distended and Normal Bowel Sounds
Skin: Warm, Dry and Rash (nonpurulent erythematous skin of the LUE, scattered excoriations ); Negative Jaundice
Lab / Diagnostic Study Results
12/09/24 06:19
12/09/24 06:19
Total Counted 100 12/08/24 12:31
Abs Neuts (Manual) 22.5 10^3/uL (1.4-6.5) H 12/08/24 12:31
Segmented Neutrophils 43 % (42-75) 12/08/24 12:31
Band Neutrophils 11 % (0-3) H 12/08/24 12:31
Lymphocytes (Manual) 7 % (20-51) L 12/08/24 12:31
Eosinophils (Manual) 1 % (0-6) 12/08/24 12:31
PT 15.3 Sec (11.4-14.6) H 12/08/24 18:44
INR 1.18 12/08/24 18:44
Urine WBC 0-2 /HPF (0-5) 12/08/24 20:18
Ur Squamous Epith Cells >30 /LPF (Few) 12/08/24 20:18
Microbiology Results
Micro:
12/08/24 20:18 Urine Culture - Pending
Urine
12/09/24 00:59 MRSA Screen - Pending
Nose
Assessment / Plan
Nonpurlent LUE Cellulitis
Pruritus - likely due to xerosis, renal failure
- low risk of bacteremia, no indication for blood cultures
- agree with cefazolin for present eventual transition to orals
- elevation as tolerated
- has PRN benadryl, with large bottle of Eucerin and applying lotion at least BID including after shower, he has a humidifer in the bedroom
- follow physical exam
--- NOTE | 2024-12-09 15:21 | W.PN.HOSP.TC ---
Today's Communication/Plan
-
consider urology
cont bicarb and IVF
follow labs
add benadryl for itching--if no improvement, consider IV steroids
Assessment / Plan
Assessment / Plan
pt is an 89 year old male
Pruritus and leukocytosis with 12% blasts, LDH elevated, raising concern for accelerated CML versus infection-- apprec onc--no need for hydrea--suspect itching in part related to KIM with creat over 4--flow cytometry (leukemia/lymphoma
phenotyping)--no improvement with atarax--adding benadryl--cont gabapentin
Arm swelling and erythema w/ leukocytosis - doubt cellulitis--No DVT in the arm--start iv cefazolin (watch--itching could be related to that but seems to predate abx)--WBC improved
KIM on CKD - Appears euvolemic--No outlet obstruction on renal u/s--bilateral ureterovesical jets not visualized suggesting severe retention--No PVR on b/s--Uric acid only 10.8--Mild hyperkalemia--Possible post-renal--hold lisinopril--has pfeiffer
cath--cont IVF--apprec renal--bicarb added
Essential HTN - hold lisinopril- continue metoprolol
DVT PPX - heparin sq
Code status - full code
Anticipated Discharge: > 48 hours
Subjective/Interval History
-
Date of Service: December 09, 2024
pt c/o itching
Objective Data
-
Labs:
Laboratory Results
12/09/24
06:19
WBC 31.7 H
Hgb 9.2 L
Hct 28.1 L
Plt Count 108 L
Sodium 131 L
Potassium 4.9
Chloride 102
Carbon Dioxide 18 L
BUN 46 H
Creatinine 4.4 H*
Glucose 88
Calcium 8.1 L
Vital Signs:
max temp for 24 hours
12/09/24
01:06
Temp 98.4 F
Vital Signs
Temp Pulse Resp BP Pulse Ox
98.2 F 81 18 114/90 95
12/09/24 08:20 12/09/24 09:06 12/09/24 08:20 12/09/24 09:06 12/09/24 08:20
Review of Systems
-
All other systems: Reviewed and negative
Musculoskeletal: Reports Other (swollen left arm)
Skin: Reports Itching
Physical Exam
-
General: Well Developed, Well Nourished and No Apparent Distress
HEENT: Normocephalic and Atraumatic; Negative Oxygen
Respiratory: Wheezes (bilateral bases)
Cardiac: Regular Rhythm and S1/S2; Negative Murmur
GI: Soft, Nontender, Nondistended and Normal Bowel Sounds
Musculoskeletal: No Clubbing and No Cyanosis; Negative No Edema (left upper arm)
Skin: Other (constant scratching with some excoriation and bleeding noted)
Neuro: Awake and Alert
Psych: Calm
[2024-12-09] MEDS: LR 1000 IV (15:24)
[2024-12-09] MEDS: SODIUM BICARBONATE 650 MG PO ×2 (15:25→21:19)
[2024-12-09 16:30] VITALS: BP 127/69
[2024-12-09] MEDS: BENADRYL 25 MG PO ×2 (17:23→21:23)
[2024-12-09] MEDS: SENOKOT-S 1 TABLET PO (21:19)
[2024-12-09] MEDS: NEURONTIN 100 MG PO (21:19)
[2024-12-09 23:54] VITALS: BP 114/42
[2024-12-10] MEDS: LR 1000 IV (01:40)
[2024-12-10 06:50] LABS: Hematocrit 29.7 % (39.0-52.0); Hemoglobin 9.4 g/dL (13.0-18.0); Mean Corp Hgb Conc. 31.6 g/dL (33.0-37.0); Mean Corpuscular Hgb 29.7 pg (27.0-31.0); Mean Corpuscular Volume 93.7 fL (80.0-94.0); Mean Platelet Volume 10.3 fL (7.4-10.4); Platelet Count 110 10^3/uL (130-400); Red Blood Cell Count 3.17 10^6/uL (4.70-6.10); Red Cell Dist. Width 20.9 % (11.5-14.5); White Blood Cell Count 29.7 10^3/uL (4.8-10.8)
[2024-12-10 07:10] VITALS: BP 121/54
[2024-12-10 07:10] LABS: ALT (SGPT) 10 U/L (0-50); AST (SGOT) 25 U/L (17-59); Albumin 3.3 g/dl (3.5-5.0); Alkaline Phosphatase 114 U/L (38-126); Blood Urea Nitrogen 45 mg/dl (9-20); Calcium 8.5 mg/dl (8.4-10.2); Carbon Dioxide 18 mmol/L (22-30); Chloride 105 mmol/L (98-107); Estimated Creatinine Clearance 13 ml/min; Glucose 90 mg/dl (70-99); Magnesium 2.1 mg/dl (1.6-2.3); Potassium 4.8 mmol/L (3.5-5.1); Sodium 134 mmol/L (135-145); Total Bilirubin 0.3 mg/dl (0.2-1.3); Total Protein 6.1 g/dl (6.3-8.2); eGFR 12.94
[2024-12-10] MEDS: BENADRYL 25 MG PO ×3 (08:42→21:42)
[2024-12-10] MEDS: TOPROL XL 25 MG PO ×2 (08:43→20:03)
[2024-12-10] MEDS: PROSCAR 5 MG PO (08:43)
[2024-12-10] MEDS: SODIUM BICARBONATE 650 MG PO ×3 (08:43→21:25)
[2024-12-10] MEDS: POLYSPORIN OINTMENT 1 APPLIC TOPICAL ×2 (08:44→20:04)
[2024-12-10] MEDS: HEPARIN 5000 UNITS SC ×3 (08:44→23:49)
[2024-12-10] MEDS: ANCEF 5 IV ×2 (09:15→21:25)
[2024-12-10] MEDS: LR IV ×2 (10:15→21:24)
--- NOTE | 2024-12-10 11:34 | W.PN.HOSP.TC ---
Today's Communication/Plan
-
US right upper extremity
stopped IVF
Assessment / Plan
Assessment / Plan
pt is an 89 year old male
Pruritus and leukocytosis with 12% blasts, LDH elevated, raising concern for accelerated CMML versus infection (cellulitis of left arm in dependent areas)-- apprec onc--no need for hydrea--suspect itching in part related to KIM with creat over
4--flow cytometry (leukemia/lymphoma phenotyping)--no improvement with atarax--adding benadryl, offered steroids but pt declined--cont gabapentin
Arm swelling and erythema w/ leukocytosis - maybe some dependent cellulitis left upper arm--No DVT in the arm--cont cefazolin (watch--itching could be related to that but seems to predate abx)--WBC improving--now right UE swelling (likely from IVF
administration), nevertheless will order upper ext US
KIM on CKD - Appears euvolemic--No outlet obstruction on renal u/s--bilateral ureterovesical jets not visualized suggesting severe retention--No PVR on b/s--Uric acid only 10.8--Mild hyperkalemia--Possible post-renal--holding lisinopril--has pfeiffer
cath--stop IVF--apprec renal--bicarb added--not HD candidate--cont home med of finasteride
Essential HTN - holding lisinopril- continue metoprolol
DVT PPX - heparin sq
Code status - full code
Anticipated Discharge: > 48 hours
Subjective/Interval History
-
Date of Service: December 10, 2024
pt still itching--offered steroids--pt does not want that
Objective Data
-
Labs:
Laboratory Results
12/10/24
06:01
WBC 29.7 H
Hgb 9.4 L
Hct 29.7 L
Plt Count 110 L
Sodium 134 L
Potassium 4.8
Chloride 105
Carbon Dioxide 18 L
BUN 45 H
Creatinine 4.2 H*
Glucose 90
Calcium 8.5
Total Bilirubin 0.3
AST 25
ALT 10
Alkaline Phosphatase 114
Vital Signs:
max temp for 24 hours
12/09/24
23:54
Temp 98.7 F
Vital Signs
Temp Pulse Resp BP Pulse Ox
97.7 F 81 20 121/54 92
12/10/24 07:10 12/10/24 07:10 12/10/24 07:10 12/10/24 07:10 12/10/24 09:10
I&O
12/09/24 12/10/24 12/11/24
06:59 06:59 06:59
Intake Total 240 / 240
Output Total 2074
Balance -1834 / -1834
Review of Systems
-
All other systems: Reviewed and negative
Skin: Reports Itching
Physical Exam
-
General: Well Developed, Well Nourished and No Apparent Distress
HEENT: Normocephalic and Atraumatic
Respiratory: Clear to Auscultation; Negative Wheezes or Rhonchi
Cardiac: Regular Rhythm and S1/S2; Negative Murmur
GI: Soft, Nontender, Nondistended and Normal Bowel Sounds
Musculoskeletal: Negative No Edema (bilateral UE edema)
Neuro: Awake
--- NOTE | 2024-12-10 12:01 | W.PN.ID1 ---
Date of Service
Date of Service: December 10, 2024
Today's Communication
- elevation as tolerated; trial of compression
- no objection to steroids
Assessment / Plan
Nonpurlent LUE Cellulitis
Pruritus - likely due to xerosis, renal failure
CMML
KIM on CKD
- agree with cefazolin for present eventual transition to orals
- elevation as tolerated; trial of compression
- no objection to steroids
- follow physical exam
Chief Complaint
-: Cellulitis
Subjective / Review of Systems
afebrile
bp stable
tolerating current therapies
Vital Signs / Physical Exam
Vital Signs
Vital Signs
Temp Pulse Resp BP Pulse Ox
97.7 F 81 20 121/54 92
12/10/24 07:10 12/10/24 07:10 12/10/24 07:10 12/10/24 07:10 12/10/24 09:10
Physical Exam
Constitutional: No Acute Distress
Cardiovascular: Regular Rate and S1/S2; Negative Murmur or Rub
Pulmonary: Clear and Symmetric; Negative Wheezes or Rales
Gastrointestinal: Soft, Non Tender, Non Distended and Normal Bowel Sounds
Skin: Warm, Dry and Rash (erythema, warmth - worst in the dependent area near the left proximal arm ); Negative Jaundice
Objective Data
Lab Data
Lab Results
12/10/24 06:01
12/10/24 06:01
PT 15.3 Sec (11.4-14.6) H 12/08/24 18:44
INR 1.18 12/08/24 18:44
APTT 43.4 Sec (23.4-35.0) H 12/08/24 18:44
Estimated Creat Clear 13 ml/min 12/10/24 06:01
Total Bilirubin 0.3 mg/dl (0.2-1.3) 12/10/24 06:01
AST 25 U/L (17-59) 12/10/24 06:01
ALT 10 U/L (0-50) 12/10/24 06:01
Alkaline Phosphatase 114 U/L (38-126) 12/10/24 06:01
Most recent labs reviewed.
Micro Results:
12/08/24 20:18 Urine Culture - Final
Urine NO GROWTH
12/09/24 00:59 MRSA Screen - Final
Nose No Methicillin Resistant Staphylococcus aureus isolated.
--- NOTE | 2024-12-10 12:18 | W.PN.NEPH.PH ---
Today's Communication / Plan
-
Maintain Pfeiffer cath
IV fluids discontinue
Follow BMP
Discussion with at daughter re: advanced CKD and HD implications
Cefazolin renally dosed for left upper extremity cellulitis
Assessment/Plan
-
Impression:
KIM
Hyperkalemia
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
Pruritus
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
Left upper extremity edema and erythema
BPH
HTN
Hyponatremia
Interstitial fibrosis
UA (400mg protein)/no blood trace albumin
Plan:
KIM/Hyperkalemia/Metabolic Acidosis
-Creatinine slowly improving from 4.7 yesterday to 4.2 today grossly nonoliguric 2 L via Pfeiffer catheter
-pfeiffer catheter now in for urinary retention, please do not remove catheter at this time
-Fractional secretion of sodium was also low consistent with prerenal stimulus but will hold further fluids due to increasing edema of upper extremity
-Kidney and bladder ultrasound did not reveal hydronephrosis but notable for chronic renal cortical thinning
-Holding lisinopril in setting of acute kidney and
-Maintain sodium bicarbonate to combat metabolic acidosis which should also improve hyperkalemia
-Phosphorus level 5.3 not really high enough to potentiate pruritus, nor is BUN
-Patient would not be a clinically optimal hemodialysis candidate given advanced age and profound hematologic comorbidities. I explained to both the patient's and daughter that given his advanced age and chronic thrombocytopenia, dialysis
would be excessively difficult with ongoing complications of bleeding and further complications from his underlying CML impacting his end-stage renal disease management
There is no need for dialysis today at this time. His underlying acute kidney injury could also be related to his upper extremity cellulitis which is being treated with antibiotic.
-
-
Date of Service: December 10, 2024
CC / HPI / ROS
-
Chief Complaint:
Acute kidney injury
History of Present Illness:
Creatinine down from 4 7-4.2
Hemodynamically stable
Metabolic acidosis persist
Review of Systems:
Nonoliguric via Pfeiffer
No fevers
Severe hearing impairment
Labs
-
Labs:
WBC 29.7 10^3/uL (4.8-10.8) H 12/10/24 06:01
RBC 3.17 10^6/uL (4.70-6.10) L 12/10/24 06:01
Hgb 9.4 g/dL (13.0-18.0) L 12/10/24 06:01
Hct 29.7 % (39.0-52.0) L 12/10/24 06:01
Plt Count 110 10^3/uL (130-400) L 12/10/24 06:01
Sodium 134 mmol/L (135-145) L 12/10/24 06:01
Potassium 4.8 mmol/L (3.5-5.1) 12/10/24 06:01
Chloride 105 mmol/L (98-107) 12/10/24 06:01
Carbon Dioxide 18 mmol/L (22-30) L 12/10/24 06:01
BUN 45 mg/dl (9-20) H 12/10/24 06:01
Creatinine 4.2 mg/dL (0.7-1.3) H* 12/10/24 06:01
eGFR 12.94 12/10/24 06:01
Glucose 90 mg/dl (70-99) 12/10/24 06:01
Calcium 8.5 mg/dl (8.4-10.2) 12/10/24 06:01
Phosphorus 5.3 mg/dl (2.5-4.5) H 12/08/24 18:44
Eex-E-Dacxiazmwxx Pept 578 pg/ml 12/08/24 12:31
Albumin 3.3 g/dl (3.5-5.0) L 12/10/24 06:01
Physical Exam
-
Vital Signs:
Vital Signs
Temp Pulse Resp BP Pulse Ox
97.7 F 81 20 121/54 92
12/10/24 07:10 12/10/24 07:10 12/10/24 07:10 12/10/24 07:10 12/10/24 09:10
Cardiovascular:: Regular rate and rhythm
Respiratory:: Bilateral: Coarse
Lung Excursion:: Normal
Abdomen:: Nontender and Soft
Bowel Sounds:: Normal
Extremity Edema:: +1: Bilateral: (Left greater than right upper extremity edema)
Pfeiffer Catheter: Yes
Other Findings::
Cellulitic changes of left upper extremity with associated edema
--- NOTE | 2024-12-10 12:20 | W.PN.URO.CBU ---
Today's Communication / Plan
-
KEEP FINLEY PER PT REQUST BUT CAN BE REMOVED ANY TIME
Assessment / Plan
-
PT HAS ELEVTAED CREARTINIE AND PVR LG PROSTATE HOWEVER NO HYDRO AND FINLEY PLACED BUT FAILED TO LOWER CREATININE PT COMFORTABLE WITH FINLEY BUT CAN BE REMOVED AT ANY TIME WILL FOLLOW
Diagnosis
-
Date of Service: December 10, 2024
-
Patient Diagnosis:BPH INCOMPLETE BLADDER EMPTYING
Post Op Day:
Subjective
-
FREQUENCY URGENCY
Objective
-
Vital Signs
Temp Pulse Resp BP Pulse Ox
97.7 F 81 20 121/54 92
12/10/24 07:10 12/10/24 07:10 12/10/24 07:10 12/10/24 07:10 12/10/24 09:10
Intake and Output
12/09/24 12/10/24 12/11/24
06:59 06:59 06:59
Intake Total 240 / 240
Output Total 2074
Balance -1834 / -1834
Intake:
Oral fluids 240 / 240
Output:
Urine, Finley 2074
Other:
Number of approximated MODERATE 1
amounts of urine
Laboratory Results
12/10/24 06:01
12/10/24 06:01
Review of Systems
-
: Frequency and Urgency
Physical Exam
-
General - well developed, well nourished, no acute distress
Chest - clear bilaterally
Abdomen - soft, non-tender, positive bowel sounds, no CVAT, no incisional pain or distention
Genitalia - normal
Rectal - normal
Skin - warm & dry with no rash
Neuro - AOx3, no motor deficits
Extremities - no clubbing, no cyanosis, no edema
Incision - clean, dry
Dressing - clean, dry, intact
Care Review
Data Reviewed
Discussed with: Hospitalist, Nursing and Family
CT Scan: Image Pers Reviewed
Ultrasound: Image Pers Reviewed
[2024-12-10 15:16] LABS: Number Of Markers 46 markers; Source Blood
--- NOTE | 2024-12-10 15:19 | CM ---
therapy manager reviewed patient's chart and met with patient and spouse at bedside, patient lives with spouse in a one story home patient is independent with adl's and ambulation no dme, patient drives.
PCP: Dr Daphne Cash
Pharmacy: [facility]
Plan; Home with spouse when stable, no needs.
[2024-12-10 15:51] VITALS: BP 136/51
[2024-12-10] MEDS: SENOKOT-S 1 TABLET PO (21:25)
[2024-12-10] MEDS: NEURONTIN 100 MG PO (21:25)
[2024-12-10 23:45] VITALS: BP 133/57
[2024-12-11 07:20] VITALS: BP 130/88
[2024-12-11 08:17] LABS: Hematocrit 32.1 % (39.0-52.0); Hemoglobin 9.9 g/dL (13.0-18.0); Mean Corp Hgb Conc. 30.8 g/dL (33.0-37.0); Mean Corpuscular Hgb 29.3 pg (27.0-31.0); Mean Platelet Volume 10.5 fL (7.4-10.4); Platelet Count 124 10^3/uL (130-400); Red Blood Cell Count 3.38 10^6/uL (4.70-6.10); Red Cell Dist. Width 21.1 % (11.5-14.5); White Blood Cell Count 41.4 10^3/uL (4.8-10.8)
[2024-12-11 08:54] LABS: ALT (SGPT) < 10 U/L (0-50); AST (SGOT) 31 U/L (17-59); Albumin 3.6 g/dl (3.5-5.0); Alkaline Phosphatase 130 U/L (38-126); Blood Urea Nitrogen 42 mg/dl (9-20); Calcium 8.5 mg/dl (8.4-10.2); Carbon Dioxide 17 mmol/L (22-30); Chloride 107 mmol/L (98-107); Estimated Creatinine Clearance 14 ml/min; Glucose 104 mg/dl (70-99); Potassium 5.4 mmol/L (3.5-5.1); Sodium 137 mmol/L (135-145); Total Bilirubin 0.4 mg/dl (0.2-1.3); Total Protein 6.6 g/dl (6.3-8.2); Uric Acid 10.7 mg/dl (3.5-8.5); eGFR 13.72
--- NOTE | 2024-12-11 08:58 | W.PN.ONC2 ---
Addendum entered and electronically signed by Eunice Lloyd MD 12/11/24 11:46:
Flow now resulted showing 26% blasts.
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
Approval granted by Dr. Woo for inpt bone marrow biopsy for which IR has been consulted.
Start allopurinol 100 mg daily.
Start gabapentin 100 TID for itching, increase to 300 TID as tolerated (ie without excessive sedation.)
Discussed with Dr. Johnson as well as pt's and daughter at bedside.
Anticipate starting hydrea after marrow.
Original Note:
Today's Communication / Plan
-
Further recommendations upon review by Dr. Lloyd
Impression
Impression
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
12/09 pathology smear review with 12% blasts, ANC 22.5
KIM on CKD. renal US c/w chronic medical renal disease
urinary retention
acute on chronic anemia likely multifactorial with cellulitis, renal insufficiency, dilution, and 1 dose of Hydrea 12/09. No role for iron repleation wtih ferritin >100, no B12 or folate deficiency. Elevated retic and LDH with normal LFTs makes
hemolysis less likely, however, haptoglobin pending
Plan
Plan
Abx per ID
f/u peripheral flow
f/u haptoglobin
Subjective/Objective
Subjective
no new complaints
Vital Signs:
Vital Signs
Temp Pulse Resp BP Pulse Ox
97.7 F 83 20 130/88 97
12/11/24 07:20 12/11/24 07:20 12/11/24 07:20 12/11/24 07:20 12/11/24 07:20
Lab Results:
Laboratory Data
WBC 41.4 10^3/uL (4.8-10.8) H* 12/11/24 07:44
Hgb 9.9 g/dL (13.0-18.0) L 12/11/24 07:44
Plt Count 124 10^3/uL (130-400) L 12/11/24 07:44
PT 15.3 Sec (11.4-14.6) H 12/08/24 18:44
INR 1.18 12/08/24 18:44
APTT 43.4 Sec (23.4-35.0) H 12/08/24 18:44
eGFR 13.72 12/11/24 07:44
Physical Exam
General: No Apparent Distress
HEENT: Moist Mucous Membranes; Negative Jaundice
Cardiology: Normal Sinus Rhythm
Pulmonary: Clear
GI: Soft
Extremities: Other (LUE extensive erythema, petechia rash, and +1 edema)
Neurology: Non Focal
Skin: Warm
Psych: Calm
[2024-12-11] MEDS: HEPARIN 5000 UNITS SC ×2 (09:07→16:55)
[2024-12-11] MEDS: TOPROL XL 25 MG PO ×2 (09:07→22:29)
[2024-12-11] MEDS: PROSCAR 5 MG PO (09:07)
[2024-12-11] MEDS: SODIUM BICARBONATE 650 MG PO ×3 (09:07→22:30)
[2024-12-11] MEDS: POLYSPORIN OINTMENT 1 APPLIC TOPICAL ×2 (09:08→20:29)
[2024-12-11] MEDS: ZYLOPRIM 100 MG PO (10:57)
[2024-12-11] MEDS: ANCEF 5 IV ×2 (10:58→22:15)
--- NOTE | 2024-12-11 12:56 | W.PN.URO.CBU ---
Today's Communication / Plan
-
LEAVE FINLEY FOR NOW
Assessment / Plan
-
PT HAS ELEVTAED CREARTINIE AND PVR LG PROSTATE HOWEVER NO HYDRO AND FINLEY PLACED BUT FAILED TO LOWER CREATININE PT COMFORTABLE WITH FINLEY BUT CAN BE REMOVED AT ANY TIME WILL FOLLOW
Diagnosis
-
Date of Service: December 11, 2024
-
Patient Diagnosis:
Post Op Day:
Patient Diagnosis:BPH INCOMPLETE BLADDER EMPTYING
Post Op Day:
Subjective
-
TOLERTING AND WANTS TO KEEP FINLEY FR NOW
Objective
-
Vital Signs
Temp Pulse Resp BP Pulse Ox
97.7 F 83 20 130/88 97
12/11/24 07:20 12/11/24 07:20 12/11/24 07:20 12/11/24 07:20 12/11/24 07:20
Intake and Output
12/10/24 12/11/24 12/12/24
06:59 06:59 06:59
Intake Total 240 / 240 480 / 480
Output Total 2074 1275 / 1275
Balance -1835 / -1835 -795 / -795
Intake:
Oral fluids 240 / 240 480 / 480
Output:
Urine, Finley 2074 1275 / 1275
Laboratory Results
12/11/24 07:44
12/11/24 07:44
Review of Systems
-
: No Symptoms
Physical Exam
-
General - well developed, well nourished, no acute distress
Chest - clear bilaterally
Abdomen - soft, non-tender, positive bowel sounds, no CVAT, no incisional pain or distention
Genitalia - normal
Rectal - normal
Skin - warm & dry with no rash
Neuro - AOx3, no motor deficits
Extremities - no clubbing, no cyanosis, no edema
Incision - clean, dry
Dressing - clean, dry, intact
Care Review
Data Reviewed
Discussed with: Nursing
--- NOTE | 2024-12-11 13:03 | WOUNDNOTE ---
L ARM WITH FLASH
--- NOTE | 2024-12-11 13:03 | WOUNDNOTE ---
L UPPER ARM WITH FLASH
--- NOTE | 2024-12-11 13:05 | WOUNDNOTE ---
WON RN note: Patient admitted with Acute renal failure, possible blast crisis and cellulitis of arms.
See H&P for complete history. Lives at home with .
PMH: DM, HTN, SVT, Cancer(CML) Melanoma removal from L chest with skin graft 2010.
Wound Location and type/assessment: Patient admitted with: Edema and weeping of both arms. ultrasound of both arms were negative for DVT. Reviewed I&D note, pruritus likely from xerosis, renal failure, compression ordered. Serosanguineous drainage
mainly lateral elbows and lower arms. Patient reports less itching and scratching, edema has also decreased. Patient states he can make a fist now, on admission he wasn't able to do that. Nurse Sapna assisted with assessment and wound care. Heels
and Sacrum are intact.
Appetite: Good.
Pressure redistribution devices in place: On Accumax, able to turn self. Pillow under calves.
Plan: Dressings changed, adaptic, abd pad, kerlix and michael wraps both arms. Arms elevated on pillows.
Will confirm orders with hospitalist and updated nurse.
Updated care plan and will follow as needed.
Note to case management of equipment requested for discharge:
Recommend follow up at wound care center upon discharge.
[2024-12-11] MEDS: BENADRYL 50 MG PO ×2 (13:30→23:18)
--- NOTE | 2024-12-11 14:12 | W.PN.ID1 ---
Date of Service
Date of Service: December 11, 2024
Today's Communication
- continue cefazolin for today, switch to keflex in the AM to complete 7 day course through 12/14
Assessment / Plan
Nonpurlent LUE Cellulitis
Pruritus - likely due to xerosis, renal failure
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
KIM on CKD
- continue cefazolin for today, switch to keflex in the AM to complete 7 day course through 12/14
- elevation as tolerated; trial of compression
- no objection to steroids
- Flow now resulted showing 26% blasts. For bone marrow biopsy
Chief Complaint
-: Cellulitis
Subjective / Review of Systems
afebrile
bp stable
Flow now resulted showing 26% blasts. For bone marrow biopsy
Vital Signs / Physical Exam
Vital Signs
Vital Signs
Temp Pulse Resp BP Pulse Ox
97.7 F 83 20 130/88 97
12/11/24 07:20 12/11/24 07:20 12/11/24 07:20 12/11/24 07:20 12/11/24 07:20
Physical Exam
Constitutional: No Acute Distress
Cardiovascular: Regular Rate and S1/S2; Negative Murmur or Rub
Pulmonary: Clear and Symmetric; Negative Wheezes or Rales
Gastrointestinal: Soft, Non Tender, Non Distended and Normal Bowel Sounds
Skin: Warm, Dry and Rash (erythema nearly resolved in the LUE); Negative Jaundice
Objective Data
Lab Data
Lab Results
12/11/24 07:44
12/11/24 07:44
PT 15.3 Sec (11.4-14.6) H 12/08/24 18:44
INR 1.18 12/08/24 18:44
APTT 43.4 Sec (23.4-35.0) H 12/08/24 18:44
Estimated Creat Clear 14 ml/min 12/11/24 07:44
Total Bilirubin 0.4 mg/dl (0.2-1.3) 12/11/24 07:44
AST 31 U/L (17-59) 12/11/24 07:44
ALT < 10 U/L (0-50) 12/11/24 07:44
Alkaline Phosphatase 130 U/L (38-126) H 12/11/24 07:44
Most recent labs reviewed.
Micro Results:
12/08/24 20:18 Urine Culture - Final
Urine NO GROWTH
12/09/24 00:59 MRSA Screen - Final
Nose No Methicillin Resistant Staphylococcus aureus isolated.
--- NOTE | 2024-12-11 15:12 | W.PN.NEPH.PH ---
Today's Communication / Plan
-
Continue antibiotics
potassium restriction
Assessment/Plan
-
Impression:
KIM
Hyperkalemia
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
Pruritus
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
Left upper extremity edema and erythema
BPH
HTN
Hyponatremia
Interstitial fibrosis
UA (400mg protein)/no blood trace albumin
Plan:
KIM/Hyperkalemia/Metabolic Acidosis
-Creatinine slowly improving from 4.7 yesterday to 4.2 today grossly nonoliguric 2 L via Pfeiffer catheter
-pfeiffer catheter now in for urinary retention, please do not remove catheter at this time
-Fractional secretion of sodium was also low consistent with prerenal stimulus but will hold further fluids due to increasing edema of upper extremity
-Kidney and bladder ultrasound did not reveal hydronephrosis but notable for chronic renal cortical thinning
-Holding lisinopril in setting of acute kidney and
-Maintain sodium bicarbonate to combat metabolic acidosis which should also improve hyperkalemia
-Phosphorus level 5.3 not really high enough to potentiate pruritus, nor is BUN
-Patient would not be a clinically optimal hemodialysis candidate given advanced age and profound hematologic comorbidities. I explained to both the patient's and daughter that given his advanced age and chronic thrombocytopenia, dialysis
would be excessively difficult with ongoing complications of bleeding and further complications from his underlying CML impacting his end-stage renal disease management
There is no need for dialysis today at this time. His underlying acute kidney injury could also be related to his upper extremity cellulitis which is being treated with antibiotic.
creatinine somewhat improve it for potassium slightly elevated 5.4 remains on antibiotics. Pfeiffer catheter placed urine output nonoliguric
-
-
Date of Service: December 11, 2024
CC / HPI / ROS
-
Chief Complaint:
Acute kidney injury
History of Present Illness:
Creatinine down from 4 7-4.2
Hemodynamically stable
Metabolic acidosis persist
Review of Systems:
Nonoliguric via Pfeiffer
No fevers
Severe hearing impairment
Labs
-
Labs:
WBC 41.4 10^3/uL (4.8-10.8) H* 12/11/24 07:44
RBC 3.38 10^6/uL (4.70-6.10) L 12/11/24 07:44
Hgb 9.9 g/dL (13.0-18.0) L 12/11/24 07:44
Hct 32.1 % (39.0-52.0) L 12/11/24 07:44
Plt Count 124 10^3/uL (130-400) L 12/11/24 07:44
Sodium 137 mmol/L (135-145) 12/11/24 07:44
Potassium 5.4 mmol/L (3.5-5.1) H 12/11/24 07:44
Chloride 107 mmol/L (98-107) 12/11/24 07:44
Carbon Dioxide 17 mmol/L (22-30) L 12/11/24 07:44
BUN 42 mg/dl (9-20) H 12/11/24 07:44
Creatinine 4.0 mg/dL (0.7-1.3) H 12/11/24 07:44
eGFR 13.72 12/11/24 07:44
Glucose 104 mg/dl (70-99) H 12/11/24 07:44
Calcium 8.5 mg/dl (8.4-10.2) 12/11/24 07:44
Phosphorus 5.3 mg/dl (2.5-4.5) H 12/08/24 18:44
Iix-G-Wcrlhvynrkc Pept 578 pg/ml 12/08/24 12:31
Albumin 3.6 g/dl (3.5-5.0) 12/11/24 07:44
Physical Exam
-
Vital Signs:
Vital Signs
Temp Pulse Resp BP Pulse Ox
97.7 F 83 20 130/88 97
12/11/24 07:20 12/11/24 07:20 12/11/24 07:20 12/11/24 07:20 12/11/24 07:20
Cardiovascular:: Regular rate and rhythm
Respiratory:: Bilateral: Coarse
Lung Excursion:: Normal
Abdomen:: Nontender and Soft
Bowel Sounds:: Normal
Extremity Edema:: +1: Bilateral: (Left greater than right upper extremity edema)
Pfeiffer Catheter: Yes
Other Findings::
Cellulitic changes of left upper extremity with associated edema
[2024-12-11 15:23] VITALS: BP 129/47
--- NOTE | 2024-12-11 15:55 | CM ---
Patient and /daughter seen at bedside and physicians. Patient for bone marrow biopsy per physicians and plan is pending results. Patient plan would be home with VN vs SNF. CM will continue to follow for discharge planning needs.
Plan; home with VN vs SNF; pending medical treatment plan
--- NOTE | 2024-12-11 18:18 | W.PN.HOSP.TC ---
Addendum entered and electronically signed by Annamaria Tristan MD 12/11/24 19:19:
I saw and evaluated the patient independently. I reviewed the resident�s note and agree with findings and plan as documented by Dr. Hooker. Spoke with and daughter at bedside.
GENERAL: well developed, well nourished, chronically ill appearing male in no apparent distress
HEENT: NC/AT--no O2 requirements
HEART: regular rate and rhythm, +S1, +S2
LUNGS : clear to auscultation bilaterally
ABDOM: soft, nontender, nondistended, + bowel sounds
EXT: no cyanosis, clubbing--bilateral UE swollen with compression wraps
NEUROLOGIC: grossly intact
: pfeiffer cath
Pruritus and leukocytosis with 12% blasts up to 26% by flow cytometry, LDH/uric acid elevated, raising concern for accelerated CMML and conversion to AML versus infection (cellulitis of left arm in dependent areas)-- apprec onc--starting
hydrea--suspect itching in part related to KIM with creat over 4--no improvement with atarax (stopped)--increasing benadryl, offered steroids but pt declined--cont gabapentin--start allopurinol --approval for inpt Bone marrow biopsy obtained--IR
consult hopeful biopsy in AM 12/12
Arm swelling and erythema w/ leukocytosis - maybe some dependent cellulitis left upper arm--No DVT in either arm, cont compression therapy-- cefazolin to oral keflex
KIM on CKD - Appears euvolemic--No outlet obstruction on renal u/s--bilateral ureterovesical jets not visualized suggesting severe retention--No PVR on bladder scan--holding lisinopril--has pfeiffer cath--stop IVF--apprec renal--bicarb added--not HD
candidate--cont home med of finasteride--both pre-renal and post renal etiologies ruled out (no improvement with IVF or pfeiffer placement)--cont pfeiffer--leaning more towards AML/tumor lysis with elevated LDH, uric acid etc
Essential HTN - holding lisinopril- continue metoprolol
DVT PPX - heparin sq
Code status - full code
Original Note:
Today's Communication/Plan
-
Benadryl 50mg prn for itching, can go up on gabapentin if needed. Hold lovenox after midnight dose pending bone marrow biopsy tomorrow in AM.
Assessment / Plan
Assessment / Plan
Patient is an 89 yo male w/ Hx of CMML T1, HTN, Stage IV CKD who presented with fatigue, itchiness, SOB & arm swelling
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
#Tumor Lysis Syndrome, possible
#Pruritus
#Leukocytosis
#Lactic Acidemia
- Leukocytosis in the 40,000s with 12% blasts (send out Flow Cytometry showing 26% blasts), LDH elevated, raising concern for CMML conversion to AML.
- Increasing to Benadryl 50mg prn for pruritis. Can consider increasing gabapentin up to 300mg TID for itching, monitor for sedation
- Follow CBC w/ diff, CMP, LDH Phosphorus and Uric Acid in AM
- pending BMBx tomorrow. Will hold Lovenox pre-operatively and resume post-op
#Hyperkalemia - K now 5.4 Given suspicion for possible tumor lysis, will given 1 dose Lokelma 5mg and check K level tomorrow.
#Arm swelling & erythema w/ leukocytosis (dependent cellulitis vs. third spacing secondary to IVF)
- UE Venous Doppler negative for clot BL
- Last dose cefazolin today & Start Keflex 500mg BID in AM per ID 7 day course to be finished by 12/14
- c/w compression wrapping of BL upper extremity
#KIM on CKD
- Renal U/s negative for outlet obstruction. BL UV jets not visualized suggesting severe retention. Not HD candidate at this time.
- holding lisinopril
- Keep Pfeiffer cath
- c/w holding IVF
- c/w home med of finasteride
#Essential HTN - holding lisinopril as above, c/w metoprolol
Diet - Full
DVT PPX - SC Heparin 5000 q8
Code status - Full code
Anticipated Discharge: 24 - 48 hours
Subjective/Interval History
-
Feeling well. No overnight events, fevers, chills, shortness of breath or chest pain. He says the swelling and itching have improved with compressions and benadryl
Objective Data
-
Labs:
Laboratory Results
12/11/24
07:44
WBC 41.4 H*
Hgb 9.9 L
Hct 32.1 L
Plt Count 124 L
Sodium 137
Potassium 5.4 H
Chloride 107
Carbon Dioxide 17 L
BUN 42 H
Creatinine 4.0 H
Glucose 104 H
Calcium 8.5
Total Bilirubin 0.4
AST 31
ALT < 10
Alkaline Phosphatase 130 H
Vital Signs:
Vital Signs
Temp Pulse Resp BP Pulse Ox
98.5 F 86 20 129/47 97
12/11/24 15:23 12/11/24 15:23 12/11/24 15:23 12/11/24 15:23 12/11/24 15:23
I&O
12/10/24 12/11/24 12/12/24
06:59 06:59 06:59
Intake Total 240 / 240 480 / 480 600 / 600
Output Total 2075 / 2075 1275 / 1275 500 / 500
Balance -1835 / -1835 -795 / -795 100 / 100
Review of Systems
-
History Source: Patient
Constitutional: Reports No Symptoms
EENT: Reports No Symptoms Reported
Respiratory: Reports No Symptoms
Cardiac: Reports No Symptoms
Abdomen/GI: Reports No Symptoms
Genitourinary: Reports Difficulty Voiding
Musculoskeletal: Reports No Symptoms
Skin: Reports Itching (Upper extremities; reduced from yesterday) and Other (Swelling and redness in the LUE which has improved)
Neuro: Reports No Symptoms
Hematologic / Lymphatic: Reports Other
Physical Exam
-
General: Well Developed, Well Nourished, No Apparent Distress, Comfortable and Appears Chronically Ill
HEENT: Normocephalic, Atraumatic, Moist Mucous Membranes and PERRLA
Respiratory: Clear to Auscultation
Cardiac: Regular Rhythm and S1/S2
GI: Soft, Nontender and Nondistended
Musculoskeletal: No Clubbing, No Cyanosis, Edema, Right Upper Extrem and Edema, Left Upper Extrem
Skin: Other (Scattered ecchymosis & flaking skin on the BL UE with resolving erythema)
Neuro: Awake, Alert, Oriented, No Motor Deficits and Nonfocal/Grossly Intact
Psych: Calm
[2024-12-11] MEDS: LOKELMA 5 GRAM PO (20:31)
[2024-12-11] MEDS: FLUSH (NSS) 2 FLUSH IV (22:16)
[2024-12-11] MEDS: NEURONTIN 100 MG PO (22:29)
[2024-12-11] MEDS: SENOKOT-S 1 TABLET PO (22:30)
[2024-12-11 23:50] VITALS: BP 120/50
[2024-12-12] VITALS (11 sets, daily range): BP systolic 76–135; BP diastolic 43–59; PULSE 77; O2SAT 97; BMI 32.7
[2024-12-12] MEDS: KEFLEX 500 MG PO ×2 (05:36→20:41)
[2024-12-12] MEDS: BENADRYL 50 MG PO ×3 (05:43→19:02)
--- NOTE | 2024-12-12 06:59 | W.PN.HOSP.TC ---
Addendum entered and electronically signed by Annamaria Tristan MD 12/12/24 21:27:
I saw and evaluated the patient independently. I reviewed the resident�s note and agree with findings and plan as documented by Dr. Hooker.
GENERAL: well developed, well nourished, chronically ill appearing male in no apparent distress
HEENT: NC/AT--no O2 requirements
HEART: regular rate and rhythm, +S1, +S2
LUNGS : clear to auscultation bilaterally
ABDOM: soft, nontender, nondistended, + bowel sounds
EXT: no cyanosis, clubbing--bilateral UE swollen with compression wraps
NEUROLOGIC: grossly intact
: pfeiffer cath with hematuria
Pruritus and leukocytosis with 12% blasts up to 26% by flow cytometry, LDH/uric acid elevated, raising concern for accelerated CMML and conversion to AML versus infection (cellulitis of left arm in dependent areas less likely--could be leukemia
cutis as per onc)--s/p bone marrow biopsy and hydrea now started-- apprec onc---suspect itching in part related to KIM with creat over 4--no improvement with atarax (stopped)--increasing benadryl, offered steroids but pt declined--cont gabapentin,
increase as tolerated--cont allopurinol --bone marrow biopsy 12/12/24
Arm swelling and erythema w/ leukocytosis - maybe some dependent cellulitis left upper arm--No DVT in either arm, cont compression therapy-- cefazolin to oral keflex
KIM on CKD - Appears euvolemic--No outlet obstruction on renal u/s--bilateral ureterovesical jets not visualized suggesting severe retention--No PVR on bladder scan--holding lisinopril--has pfeiffer cath--stopped IVF--apprec renal--bicarb added--not
HD candidate--cont home med of finasteride--both pre-renal and post renal etiologies ruled out (no improvement with IVF or pfeiffer placement)--cont pfeiffer as per renal--leaning more towards AML/tumor lysis with elevated LDH, uric acid etc
Essential HTN - holding lisinopril- continue metoprolol
DVT PPX - heparin sq
Code status - full code
Original Note:
Today's Communication/Plan
-
s/p BMBx. C/w Keflex for UE cellulitis tx. Pending biopsy results. Monitor for urine output & bloody urine
Assessment / Plan
Assessment / Plan
Patient is an 89 yo male w/ Hx of CMML T1, HTN, Stage IV CKD who presented with fatigue, itchiness, SOB & arm swelling
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
#Tumor Lysis Syndrome, possible
#Pruritus
#Leukocytosis
#Lactic Acidemia
- Leukocytosis still in the 40,000s (send out Flow Cytometry showing 26% blasts), LDH elevated, raising concern for CMML conversion to AML.
- C/w Benadryl 50mg prn for pruritus. Can consider increasing gabapentin up to 300mg TID for itching, will up titrate as needed paying attention to sedation.
- LDH, uric acid elevated. phosphorus wnl. Will check again in AM.
- pending BMBx results. Ok to resume sc heparin for dvt ppx.
- Oncology to c/w Allopurinol and will start renally dosed Hydroxyurea s/p BMBx
#Hyperkalemia - K now 5.1 s/p Lokelma & fluids. Will continue to monitor.
#Arm swelling & erythema w/ leukocytosis (dependent cellulitis vs. third spacing secondary to IVF)
- UE Venous Doppler negative for clot BL
- Started on Keflex to continue through 12/17 as per ID
- c/w compression wrapping of BL upper extremity
#KIM on CKD
#Blood tinged urine
- First Breaker Feeder 3.9 today, not yet back to baseline, Pfeiffer still in. If there is component of tumor lysis syndrome, will hope for improvement following Hydroxyurea as above.
- Not sure if bloody urine consequence of mechanical trauma from Pfeiffer vs. intrarenal pathology secondary to oncologic disease process (CMML vs. AML)
- continue holding lisinopril
#Urinary Retention
- Renal U/s negative for outlet obstruction. BL UV jets not visualized suggesting severe retention. Not HD candidate at this time.
- Keep Pfeiffer cath for now, appreciate urology reccs
- c/w home med of finasteride
#Essential HTN - holding lisinopril as above, c/w metoprolol
Diet - Full
DVT PPX - SC Heparin 5000 q8
Code status - Full code
Anticipated Discharge: 24 - 48 hours
Subjective/Interval History
-
Had BMB, was asleep but aroused during examination and was conversant. Feeling well today without any complaints.
Objective Data
-
Labs:
Laboratory Results
12/12/24
06:00
WBC Pending
Hgb Pending
Hct Pending
Plt Count Pending
Sodium Pending
Potassium Pending
Chloride Pending
Carbon Dioxide Pending
BUN Pending
Creatinine Pending
Glucose Pending
Calcium Pending
Vital Signs:
Vital Signs
Temp Pulse Resp BP Pulse Ox
98.2 F 86 18 120/50 94
12/11/24 23:50 12/11/24 23:50 12/11/24 23:50 12/11/24 23:50 12/11/24 23:50
I&O
12/10/24 12/11/24 12/12/24
06:59 06:59 06:59
Intake Total 240 / 240 480 / 480 840 / 840
Output Total 2074 / 2074 1275 / 1275 900 / 900
Balance -1835 / -1835 -795 / -795 -60 / -60
Review of Systems
-
History Source: Patient
Constitutional: Reports No Symptoms
EENT: Reports No Symptoms Reported
Respiratory: Reports No Symptoms
Cardiac: Reports No Symptoms
Abdomen/GI: Reports No Symptoms
Genitourinary: Reports No Symptoms
Musculoskeletal: Reports No Symptoms
Skin: Reports Itching (Stable itching BL UE, dressings on BL forearm )
Neuro: Reports No Symptoms
Hematologic / Lymphatic: Reports No Symptoms
Physical Exam
-
General: Well Developed, Well Nourished, No Apparent Distress and Appears Chronically Ill
HEENT: Normocephalic, Atraumatic, Moist Mucous Membranes, Anicteric and PERRLA
Respiratory: Clear to Auscultation
Cardiac: Regular Rhythm and S1/S2
GI: Soft, Nontender, Nondistended and Normal Bowel Sounds
Genito-urinary: No Costovertebral Tender and Bloody Urine
Musculoskeletal: No Clubbing, No Cyanosis and No Edema
Neuro: Awake, Alert and Oriented
Psych: Calm
[2024-12-12 08:29] LABS: Hematocrit 29.6 % (39.0-52.0); Hemoglobin 9.3 g/dL (13.0-18.0); Mean Corp Hgb Conc. 31.4 g/dL (33.0-37.0); Mean Corpuscular Hgb 29.5 pg (27.0-31.0); Mean Platelet Volume 10.2 fL (7.4-10.4); Platelet Count 122 10^3/uL (130-400); Red Blood Cell Count 3.15 10^6/uL (4.70-6.10); White Blood Cell Count 40.5 10^3/uL (4.8-10.8)
[2024-12-12 08:32] LABS: Blood Urea Nitrogen 40 mg/dl (9-20); Calcium 8.2 mg/dl (8.4-10.2); Carbon Dioxide 19 mmol/L (22-30); Chloride 107 mmol/L (98-107); Estimated Creatinine Clearance 14 ml/min; Glucose 107 mg/dl (70-99); LDH 879 U/L (120-246); Phosphorus 3.7 mg/dl (2.5-4.5); Sodium 138 mmol/L (135-145); Uric Acid 10.6 mg/dl (3.5-8.5); eGFR 14.14
[2024-12-12 08:39] LABS: Potassium 5.1 mmol/L (3.5-5.1)
[2024-12-12] MEDS: POLYSPORIN OINTMENT 1 APPLIC TOPICAL ×2 (09:25→20:42)
[2024-12-12] MEDS: PROSCAR 5 MG PO (09:25)
[2024-12-12] MEDS: TOPROL XL 25 MG PO ×2 (09:25→20:42)
[2024-12-12] MEDS: ZYLOPRIM 100 MG PO (09:25)
[2024-12-12] MEDS: SODIUM BICARBONATE 650 MG PO ×3 (09:25→22:35)
--- NOTE | 2024-12-12 09:47 | W.PN.ONC ---
Today's Communication / Plan
-
Inpatient bone marrow biopsy
Initiate renally dosed hydroxyurea after bone marrow biopsy
Continue antibiotics per primary
Symptom management per primary, reports improvement of pruritus with gabapentin
Impression
Impression
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
12/09 pathology smear review with 12% blasts, ANC 22.5
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
Inpatient bone marrow biopsy approved and ordered, currently pending
Elevated uric acid, hyperkalemia and pruritus, not resolving with antibiotics
KIM on CKD. renal US c/w chronic medical renal disease
urinary retention
acute on chronic anemia likely multifactorial with cellulitis, renal insufficiency, dilution, and 1 dose of Hydrea 12/09. No role for iron repleation wtih ferritin >100, no B12 or folate deficiency. Elevated retic and LDH with normal LFTs makes
hemolysis less likely, however, haptoglobin pending
Plan
Plan
Antibiotics per ID and primary team
Inpatient bone marrow biopsy approved, pending
Further management contingent on pulmonary biopsy results
Will initiate hydroxyurea after bone marrow biopsy. Typical dose is 1 to 4 g, however with renal impairment 50% dose reduction is recommended
Will initiate 500 mg hydroxyurea after bone marrow biopsy
Continue gabapentin for pruritus, up titration per primary team. Up to 300 mg 3 times daily, care for sedation
Subjective/Objective
Subjective/Objective
Reports slight resolution of itching with gabapentin
Vital Signs:
Vital Signs
Temp Pulse Resp BP Pulse Ox
98.6 F 81 20 124/59 92
12/12/24 07:10 12/12/24 07:10 12/12/24 07:10 12/12/24 07:10 12/12/24 07:10
Lab Results:
Laboratory Data
WBC 40.5 10^3/uL (4.8-10.8) H* 12/12/24 07:06
Hgb 9.3 g/dL (13.0-18.0) L 12/12/24 07:06
Plt Count 122 10^3/uL (130-400) L 12/12/24 07:06
PT 15.3 Sec (11.4-14.6) H 12/08/24 18:44
INR 1.18 12/08/24 18:44
APTT 43.4 Sec (23.4-35.0) H 12/08/24 18:44
eGFR 14.14 12/12/24 07:06
--- NOTE | 2024-12-12 10:28 | W.PN.ID1 ---
Date of Service
Date of Service: December 12, 2024
Today's Communication
- switched to keflex to complete 10 day course through 12/17
- elevation as tolerated; trial of compression - can discontinue when antibiotics completed
Assessment / Plan
Nonpurlent LUE Cellulitis
Pruritus - likely due to xerosis, renal failure
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
KIM on CKD
- switched to keflex to complete 10 day course through 12/17
- elevation as tolerated; trial of compression - can discontinue when antibiotics completed
- no objection to steroids
- Flow now resulted showing 26% blasts. For bone marrow biopsy
Chief Complaint
-: Cellulitis
Subjective / Review of Systems
afebrile
bp stable
stable leukocytosis
for bone marrow biopsy today
Vital Signs / Physical Exam
Vital Signs
Vital Signs
Temp Pulse Resp BP Pulse Ox
98.6 F 81 20 124/59 92
12/12/24 07:10 12/12/24 07:10 12/12/24 07:10 12/12/24 07:10 12/12/24 07:10
Physical Exam
Constitutional: No Acute Distress and Chronically Ill
Cardiovascular: Regular Rate and S1/S2; Negative Murmur or Rub
Pulmonary: Clear and Symmetric; Negative Wheezes or Rales
Gastrointestinal: Soft, Non Tender, Non Distended and Normal Bowel Sounds
Skin: Warm, Dry and Rash (some persistent erythema on the distal, dependant left arm, proximal area nearly resolved); Negative Jaundice
Objective Data
Lab Data
Lab Results
12/12/24 07:06
12/12/24 07:06
PT 15.3 Sec (11.4-14.6) H 12/08/24 18:44
INR 1.18 12/08/24 18:44
APTT 43.4 Sec (23.4-35.0) H 12/08/24 18:44
Estimated Creat Clear 14 ml/min 12/12/24 07:06
Total Bilirubin 0.4 mg/dl (0.2-1.3) 12/11/24 07:44
AST 31 U/L (17-59) 12/11/24 07:44
ALT < 10 U/L (0-50) 12/11/24 07:44
Alkaline Phosphatase 130 U/L (38-126) H 12/11/24 07:44
Most recent labs reviewed.
Micro Results:
12/08/24 20:18 Urine Culture - Final
Urine NO GROWTH
12/09/24 00:59 MRSA Screen - Final
Nose No Methicillin Resistant Staphylococcus aureus isolated.
[2024-12-12 11:14] LABS: Absolute Neutrophils -Man Diff 20.6 10^3/uL (1.4-6.5); Band Neutrophils 5 % (0-3); Segmented Neutrophils 46 % (42-75)
[2024-12-12 11:15] LABS: Eosinophils 5 % (0-6); Lymphocytes 19 % (20-51); Metamyelocytes 2 % (-); Monocytes 8 % (2-9); Myelocytes 1 % (-)
[2024-12-12 11:17] LABS: Anisocytosis 1+; Blasts 14 % (-); Normal RBC Morphology No; Platelets Checked Yes
[2024-12-12 11:18] LABS: Total Cells Counted 100
[2024-12-12] MEDS: ATIVAN 0.5 MG IV (12:30)
[2024-12-12] MEDS: NSS (PRESERVATIVE FREE) 0.25 ML IV (12:30)
--- NOTE | 2024-12-12 12:51 | W.PN.URO.CBU ---
Today's Communication / Plan
-
WOIIL EVALUATE FOR FOLET REMOVAL WED
Assessment / Plan
-
PT HAS ELEVTAED CREARTINIE AND PVR LG PROSTATE HOWEVER NO HYDRO AND FINLEY PLACED BUT FAILED TO LOWER CREATININE PT COMFORTABLE WITH FINLEY BUT CAN BE REMOVED AT ANY TIME WILL FOLLOW
Diagnosis
-
Date of Service: December 12, 2024
-
Patient Diagnosis:
Post Op Day:
Patient Diagnosis:
Post Op Day:
Patient Diagnosis:BPH INCOMPLETE BLADDER EMPTYING
Post Op Day:
Subjective
-
COMFOTRTABLE WITH FINLEY
Objective
-
Vital Signs
Temp Pulse Resp BP Pulse Ox
97.7 F 76 16 125/43 96
12/12/24 11:55 12/12/24 11:55 12/12/24 11:55 12/12/24 11:55 12/12/24 11:55
Intake and Output
12/11/24 12/12/24 12/13/24
06:59 06:59 06:59
Intake Total 480 / 480 840 / 840 180 / 180
Output Total 1275 / 1275 900 / 900
Balance -795 / -795 -60 / -60 180 / 180
Intake:
Oral fluids 480 / 480 840 / 840 180 / 180
Output:
Urine, Finley 1275 / 1275 500 / 500
Urine, Voided 400 / 400
Laboratory Results
12/12/24 07:06
12/12/24 07:06
Review of Systems
-
: No Symptoms
Physical Exam
-
General - well developed, well nourished, no acute distress
Chest - clear bilaterally
Abdomen - soft, non-tender, positive bowel sounds, no CVAT, no incisional pain or distention
Genitalia - normal
Rectal - normal
Skin - warm & dry with no rash
Neuro - AOx3, no motor deficits
Extremities - no clubbing, no cyanosis, no edema
Incision - clean, dry
Dressing - clean, dry, intact
Care Review
Data Reviewed
Discussed with: Hospitalist, Nursing and Family
--- NOTE | 2024-12-12 14:06 | PTCARENOTE ---
Resident Manuelito Hooker made aware of blood tinged urine in patient pfeiffer. Care of plan ongoing.
[2024-12-12 14:33] LABS: Haptoglobin 18 mg/dL (30-200)
--- NOTE | 2024-12-12 15:29 | CM ---
Patient out of room when CM and physicians originally saw patient today for Bone marrow biopsy. CM will continue to follow for discharge planning needs.
Plan; TBD
--- NOTE | 2024-12-12 16:20 | W.PN.NEPH.PH ---
Today's Communication / Plan
-
No change from renal standpoint
Assessment/Plan
-
Impression:
KIM
Hyperkalemia
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
Pruritus
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
Left upper extremity edema and erythema
BPH
HTN
Hyponatremia
Interstitial fibrosis
UA (400mg protein)/no blood trace albumin
Plan:
KIM/Hyperkalemia/Metabolic Acidosis
-Creatinine slowly improving from 4.7 yesterday to 4.2 today grossly nonoliguric 2 L via Pfeiffer catheter
-pfeiffer catheter now in for urinary retention, please do not remove catheter at this time
-Fractional secretion of sodium was also low consistent with prerenal stimulus but will hold further fluids due to increasing edema of upper extremity
-Kidney and bladder ultrasound did not reveal hydronephrosis but notable for chronic renal cortical thinning
-Holding lisinopril in setting of acute kidney and
-Maintain sodium bicarbonate to combat metabolic acidosis which should also improve hyperkalemia
-Phosphorus level 5.3 not really high enough to potentiate pruritus, nor is BUN
-Patient would not be a clinically optimal hemodialysis candidate given advanced age and profound hematologic comorbidities. I explained to both the patient's and daughter that given his advanced age and chronic thrombocytopenia, dialysis
would be excessively difficult with ongoing complications of bleeding and further complications from his underlying CML impacting his end-stage renal disease management
There is no need for dialysis today at this time. His underlying acute kidney injury could also be related to his upper extremity cellulitis which is being treated with antibiotic.
Creatinine continues to improve currently 3.9 and potassium improved also to 5.1 on a low potassium diet. He is status post a bone marrow biopsy today and he still has Pfeiffer catheter and possibly remove it tomorrow
Now on Keflex
-
-
Date of Service: December 12, 2024
CC / HPI / ROS
-
Chief Complaint:
Acute kidney injury
History of Present Illness:
Creatinine down from 4 7-4.2�3.9
Hemodynamically stable
Review of Systems:
Nonoliguric via Pfeiffer
No fevers
Severe hearing impairment
Labs
-
Labs:
WBC 40.5 10^3/uL (4.8-10.8) H* 12/12/24 07:06
RBC 3.15 10^6/uL (4.70-6.10) L 12/12/24 07:06
Hgb 9.3 g/dL (13.0-18.0) L 12/12/24 07:06
Hct 29.6 % (39.0-52.0) L 12/12/24 07:06
Plt Count 122 10^3/uL (130-400) L 12/12/24 07:06
Sodium 138 mmol/L (135-145) 12/12/24 07:06
Potassium 5.1 mmol/L (3.5-5.1) 12/12/24 07:06
Chloride 107 mmol/L (98-107) 12/12/24 07:06
Carbon Dioxide 19 mmol/L (22-30) L 12/12/24 07:06
BUN 40 mg/dl (9-20) H 12/12/24 07:06
Creatinine 3.9 mg/dL (0.7-1.3) H 12/12/24 07:06
eGFR 14.14 12/12/24 07:06
Glucose 107 mg/dl (70-99) H 12/12/24 07:06
Calcium 8.2 mg/dl (8.4-10.2) L 12/12/24 07:06
Phosphorus 3.7 mg/dl (2.5-4.5) 12/12/24 07:06
Tnd-N-Ofcvggshsfl Pept 578 pg/ml 12/08/24 12:31
Albumin 3.6 g/dl (3.5-5.0) 12/11/24 07:44
Physical Exam
-
Vital Signs:
Vital Signs
Temp Pulse Resp BP Pulse Ox
98 F 81 20 125/50 98
12/12/24 13:52 12/12/24 13:52 12/12/24 13:52 12/12/24 13:52 12/12/24 13:52
Cardiovascular:: Regular rate and rhythm
Respiratory:: Bilateral: Coarse
Lung Excursion:: Normal
Abdomen:: Nontender and Soft
Bowel Sounds:: Normal
Extremity Edema:: +1: Bilateral: (Left greater than right upper extremity edema)
Pfeiffer Catheter: Yes
Other Findings::
Cellulitic changes of left upper extremity with associated edema
--- NOTE | 2024-12-12 16:53 | PTCARENOTE ---
Returned to Floor from IR with dressing to R lower back CDI.
[2024-12-12] MEDS: SENOKOT-S PO (22:35)
[2024-12-12] MEDS: NEURONTIN 100 MG PO (22:35)
[2024-12-13] MEDS: HEPARIN 5000 UNITS SC ×4 (00:10→23:02)
[2024-12-13] MEDS: BENADRYL 50 MG PO ×5 (03:35→23:02)
[2024-12-13 05:19] VITALS: BMI 32.7
[2024-12-13 06:56] VITALS: BP 117/50
[2024-12-13 07:53] LABS: Lactic Acid 1.2 mmol/L (0.7-2.0)
[2024-12-13 07:54] LABS: Hematocrit 27.2 % (39.0-52.0); Hemoglobin 8.6 g/dL (13.0-18.0); Mean Corp Hgb Conc. 31.6 g/dL (33.0-37.0); Mean Corpuscular Hgb 29.7 pg (27.0-31.0); Mean Corpuscular Volume 93.8 fL (80.0-94.0); Mean Platelet Volume 9.4 fL (7.4-10.4); Platelet Count 119 10^3/uL (130-400); Red Cell Dist. Width 20.7 % (11.5-14.5); White Blood Cell Count 44.6 10^3/uL (4.8-10.8)
--- NOTE | 2024-12-13 08:10 | W.PN.HOSP.TC ---
Addendum entered and electronically signed by Annamaria Tristan MD 12/13/24 17:25:
I saw and evaluated the patient independently. I reviewed the resident�s note and agree with findings and plan as documented by Dr. Hooker.
GENERAL: well developed, well nourished, chronically ill appearing male in no apparent distress
HEENT: NC/AT--no O2 requirements
HEART: regular rate and rhythm, +S1, +S2
LUNGS : clear to auscultation bilaterally
ABDOM: soft, nontender, nondistended, + bowel sounds
EXT: no cyanosis, clubbing--bilateral UE swollen with compression wraps
NEUROLOGIC: grossly intact
: pfeiffer cath with hematuria
Pruritus and leukocytosis with 12% blasts up to 26% by flow cytometry, LDH/uric acid elevated, raising concern for accelerated CMML and conversion to AML (leukemia cutis could be skin changes as per onc)--s/p bone marrow biopsy and hydrea now
started-- apprec onc---suspect itching in part related to KIM with creat over 4--no improvement with atarax (stopped)--increasing benadryl, offered steroids but pt declined--cont gabapentin, increase as tolerated--cont allopurinol --s/p bone marrow
biopsy 12/12/24, pending
Arm swelling and erythema w/ leukocytosis - maybe some dependent cellulitis left upper arm--No DVT in either arm, cont compression therapy-- cefazolin to oral keflex
KIM on CKD - Appears euvolemic--No outlet obstruction on renal u/s--bilateral ureterovesical jets not visualized suggesting severe retention--No PVR on bladder scan--holding lisinopril--has pfeiffer cath--stopped IVF--apprec renal--bicarb added--not
HD candidate--cont home med of finasteride--both pre-renal and post renal etiologies ruled out (no improvement with IVF or pfeiffer placement)-- pfeiffer to be removed in AM 12/14/24--leaning more towards AML/tumor lysis with elevated LDH, uric acid etc
Essential HTN - holding lisinopril- continue metoprolol
DVT PPX - heparin sq
Code status - full code
Original Note:
Today's Communication/Plan
-
C/w symptomatic management of itching. Monitor for continued bleeding from Pfeiffer cath. Pending BMB results.
Assessment / Plan
Assessment / Plan
Patient is an 89 yo male w/ Hx of CMML T1, HTN, Stage IV CKD who presented with fatigue, itchiness, SOB & arm swelling
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
#Tumor Lysis Syndrome, possible
#Pruritus
#Leukocytosis
#Lactic Acidemia
- Leukocytosis still in the 40,000s (send out Flow Cytometry showing 26% blasts), LDH elevated, raising concern for CMML conversion to AML.
- C/w Benadryl 50mg prn for pruritus. gabapentin 200mg QHS and trial of hydrocortisone cream for pruritus, will monitor for sedation on gabapentin. If itching does not resolve, will try IV decadron 4mg Q8. Gabapentin not to be given in divided doses
given patient's CrCl.
- LDH, uric acid still elevated. phosphorus wnl.
- pending BMBx results. Ok to resume sc heparin for dvt ppx.
-
#Upper Extremity Ecchymosis w/ petechiae
- giving setting of CMML with possible conversion to leukemia vs. worsening of disease and bruising/bleeding, concern for DIC. Coagulation tests ordered in conjunction w/ oncology (fibrinogen, D-dimer, PT INR, PTT)
#Hyperkalemia - K now 4.7 s/p Lokelma & fluids. Will continue to monitor.
#Arm swelling & erythema w/ leukocytosis (dependent cellulitis vs. third spacing secondary to IVF)
- UE Venous Doppler negative for clot BL
- Started on Keflex to continue through 12/17 as per ID
- c/w compression wrapping of BL upper extremity
#KIM on CKD
#Blood tinged urine
- Splicing Technician 3.9 today, not yet back to baseline, Pfeiffer still in. If there is component of tumor lysis syndrome, will hope for improvement following Hydroxyurea as above.
- Not sure if bloody urine consequence of mechanical trauma from Pfeiffer vs. intrarenal pathology secondary to oncologic disease process (CMML vs. AML)
- continue holding lisinopril
#Urinary Retention
- Renal U/s negative for outlet obstruction. BL UV jets not visualized suggesting severe retention. Not HD candidate at this time.
- Keep Pfeiffer cath for now, appreciate urology reccs; plans to possibly remove Pfeiffer tomorrow
- c/w home med of finasteride
#Essential HTN - holding lisinopril as above, c/w metoprolol
Diet - Full
DVT PPX - SC Heparin 5000 q8
Code status - Full code
Anticipated Discharge: 24 - 48 hours
Subjective/Interval History
-
Overnight the urine changed back to clear consistency, however this morning is blood tinged again. urine in the tube of the pfeiffer cath is more clear than in the bag. He denies any groin pain, pain in the lower abdomen, burning sensation, fevers,
chills. itching has still been a problem for him as has scratching the upper arms.
Objective Data
-
Labs:
Laboratory Results
12/13/24
07:25
WBC 44.6 H*
Hgb 8.6 L
Hct 27.2 L
Plt Count 119 L
Sodium Pending
Potassium Pending
Chloride Pending
Carbon Dioxide Pending
BUN Pending
Creatinine Pending
Glucose Pending
Calcium Pending
Total Bilirubin Pending
AST Pending
ALT Pending
Alkaline Phosphatase Pending
Vital Signs:
Vital Signs
Temp Pulse Resp BP Pulse Ox
97.6 F 94 16 123/59 95
12/12/24 23:24 12/12/24 23:24 12/12/24 23:24 12/12/24 23:24 12/12/24 23:24
I&O
12/12/24 12/13/24 12/14/24
06:59 06:59 06:59
Intake Total 840 / 840 1190 / 1190
Output Total 900 / 900 600 / 600
Balance -60 / -60 590 / 590
Review of Systems
-
History Source: Patient
Constitutional: Reports No Symptoms; Denies Fever, Fatigue, Night Sweats or Chills
EENT: Reports No Symptoms Reported
Respiratory: Reports No Symptoms
Cardiac: Reports No Symptoms
Abdomen/GI: Reports No Symptoms
Genitourinary: Reports No Symptoms
Musculoskeletal: Reports No Symptoms
Skin: Reports Itching
Neuro: Reports No Symptoms
Physical Exam
-
General: Well Developed, Well Nourished, No Apparent Distress and Appears Chronically Ill
HEENT: Normocephalic, Atraumatic, Moist Mucous Membranes, Anicteric and PERRLA
Respiratory: Crackles (BL Lower lung joshi) and Non Labored Respirations; Negative Wheezes or Rales
Cardiac: Regular Rhythm and S1/S2; Negative Murmur or Rub
Breast: N/A
GI: Soft, Nontender, Nondistended and Normal Bowel Sounds
Genito-urinary: No Costovertebral Tender, Bloody Urine and Pfeiffer
Musculoskeletal: No Clubbing, No Cyanosis and No Edema
Skin: Other (BL Upper extremity gauze wrappings labelled 'Do not itch'. R posterior upper arm skin changes stable. Skin breaks from itching are weeping serous fluid w/ Abx ointment. Scattered ecchymosis and scabbing on the BL upper arms )
Neuro: Awake, Alert, Oriented and No Motor Deficits
Psych: Calm
[2024-12-13 08:30] LABS: ALT (SGPT) < 10 U/L (0-50); AST (SGOT) 31 U/L (17-59); Albumin 3.2 g/dl (3.5-5.0); Alkaline Phosphatase 135 U/L (38-126); Blood Urea Nitrogen 41 mg/dl (9-20); Calcium 7.9 mg/dl (8.4-10.2); Carbon Dioxide 21 mmol/L (22-30); Chloride 107 mmol/L (98-107); Estimated Creatinine Clearance 14 ml/min; Glucose 100 mg/dl (70-99); Phosphorus 3.7 mg/dl (2.5-4.5); Potassium 4.6 mmol/L (3.5-5.1); Sodium 137 mmol/L (135-145); Total Bilirubin 0.4 mg/dl (0.2-1.3); Total Protein 6.1 g/dl (6.3-8.2); Uric Acid 10.7 mg/dl (3.5-8.5); eGFR 13.32
[2024-12-13 08:40] LABS: Absolute Neutrophils -Man Diff 17.8 10^3/uL (1.4-6.5); Band Neutrophils 5 % (0-3); Eosinophils 15 % (0-6); Lymphocytes 24 % (20-51); Metamyelocytes 6 % (-); Monocytes 6 % (2-9); Myelocytes 3 % (-); Segmented Neutrophils 35 % (42-75)
[2024-12-13 08:41] LABS: Anisocytosis 1+; Hypochromasia 1+; Normal RBC Morphology No; Ovalocytes 1+; Platelets Checked Yes; Polychromasia 1+; Total Cells Counted 100
[2024-12-13 08:42] LABS: Blasts 6 % (-)
--- NOTE | 2024-12-13 08:50 | W.PN.ONC ---
Documented by User: Manny Lomax DO, Resident 12/13/24 12:08
Today's Communication / Plan
-
Antibiotics per ID and primary team
Inpatient bone marrow biopsy completed, final results pending
Definitive management contingent on bone marrow biopsy results
Initiated hydroxyurea renally dosed 500 mg p.o. daily yesterday, will continue for now
Will check lysis labs, phosphorus, potassium, uric acid, LDH, coag studies every 12 as initiated hydroxyurea renally dosed
Continue gabapentin for pruritus, up titration per primary team. Up to 300 mg 3 times daily. Care for sedation. Patient reports medication is helping with his pruritus at 100 3 times daily.
Okay from oncology perspective to start steroids
Impression
Impression
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
12/09 pathology smear review with 12% blasts, ANC 22.5
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
Inpatient bone marrow biopsy approved and ordered, completed 12/12/2024. Final results currently pending
Elevated uric acid, hyperkalemia and pruritus, not resolving with antibiotics
KIM on CKD. renal US c/w chronic medical renal disease
urinary retention
acute on chronic anemia likely multifactorial with cellulitis, renal insufficiency, dilution, and 1 dose of Hydrea 12/09. No role for iron repleation wtih ferritin >100, no B12 or folate deficiency. Elevated retic and LDH with normal LFTs makes
hemolysis less likely, however, haptoglobin pending
Plan
Plan
Antibiotics per ID and primary team
Inpatient bone marrow biopsy approved, completed 12/12/2024. Final results pending
Further management contingent on pulmonary biopsy results
Will initiate hydroxyurea after bone marrow biopsy. Typical dose is 1 to 4 g, however with renal impairment 50% dose reduction is recommended
Initiated 500 mg daily hydroxyurea p.o. 12/12/2024
Will check lysis labs, phosphorus, potassium, uric acid, LDH, coag studies every 12 as initiated hydroxyurea renally dosed
Continue gabapentin for pruritus, up titration per primary team. Up to 300 mg 3 times daily, care for sedation
Okay from oncology perspective to start steroids
Subjective/Objective
Subjective/Objective
No new complaints, still itchy
Vital Signs:
Vital Signs
Temp Pulse Resp BP Pulse Ox
97.6 F 94 16 123/59 95
12/12/24 23:24 12/12/24 23:24 12/12/24 23:24 12/12/24 23:24 12/12/24 23:24
Lab Results:
Laboratory Data
WBC 44.6 10^3/uL (4.8-10.8) H* 12/13/24 07:25
Hgb 8.6 g/dL (13.0-18.0) L 12/13/24 07:25
Plt Count 119 10^3/uL (130-400) L 12/13/24 07:25
PT 15.3 Sec (11.4-14.6) H 12/08/24 18:44
INR 1.18 12/08/24 18:44
APTT 43.4 Sec (23.4-35.0) H 12/08/24 18:44
eGFR 13.32 12/13/24 07:25

Documented by User: Vazquez Nath MD 12/13/24 12:51
Plan
Plan
Antibiotics per ID and primary team
Inpatient bone marrow biopsy approved, completed 12/12/2024. Final results pending
Further management contingent on pulmonary biopsy results
Will initiate hydroxyurea after bone marrow biopsy. Typical dose is 1 to 4 g, however with renal impairment 50% dose reduction is recommended
Initiated 500 mg daily hydroxyurea p.o. 12/12/2024
Will check lysis labs, phosphorus, potassium, uric acid, LDH, coag studies every 12 as initiated hydroxyurea renally dosed
Continue gabapentin for pruritus, up titration per primary team. Up to 300 mg 3 times daily, care for sedation
Okay from oncology perspective to start steroids
Oncology/ Hematology Addendum:
Patient seen and evaluated and agree w/ resident note and plan
-h/o CMML w/ leukocytosis - and increased peripheral blood blast percentage
-s/p marrow - await pathology
-start hydrea
-monitor CBC
-monitor tumor lysis labs - nephrology following
[2024-12-13] MEDS: KEFLEX 500 MG PO ×2 (08:53→21:06)
[2024-12-13] MEDS: SODIUM BICARBONATE 650 MG PO ×3 (08:53→21:06)
[2024-12-13] MEDS: ZYLOPRIM 100 MG PO (08:57)
[2024-12-13] MEDS: PROSCAR 5 MG PO (08:57)
[2024-12-13] MEDS: POLYSPORIN OINTMENT 1 APPLIC TOPICAL ×2 (08:58→21:06)
[2024-12-13] MEDS: TOPROL XL 25 MG PO ×2 (08:58→21:14)
[2024-12-13] MEDS: HYDROCORTISONE 2.5% LOTION 1 APPLIC TOPICAL ×2 (11:29→21:05)
[2024-12-13] MEDS: HYDREA 500 MG PO (11:39)
[2024-12-13 11:58] LABS: INR 1.18; PT 15.6 Sec (11.4-14.6)
[2024-12-13 11:59] LABS: APTT 50.4 Sec (23.4-35.0); Fibrinogen 246 MG/DL (199-459)
[2024-12-13 12:26] LABS: Blood Urea Nitrogen 43 mg/dl (9-20); Calcium 8.2 mg/dl (8.4-10.2); Carbon Dioxide 21 mmol/L (22-30); Chloride 105 mmol/L (98-107); Estimated Creatinine Clearance 14 ml/min; Glucose 110 mg/dl (70-99); Phosphorus 3.7 mg/dl (2.5-4.5); Potassium 4.7 mmol/L (3.5-5.1); Sodium 135 mmol/L (135-145); eGFR 13.32
--- NOTE | 2024-12-13 12:56 | W.PN.URO.CBU ---
Today's Communication / Plan
-
leave pfeiffer until am
Assessment / Plan
-
pfeiffer did not reverse linda will remoa-=ve am thursfday
Diagnosis
-
Date of Service: December 13, 2024
-
Patient Diagnosis:
Post Op Day:
Patient Diagnosis:
Post Op Day:
Patient Diagnosis:
Post Op Day:
Patient Diagnosis:BPH INCOMPLETE BLADDER EMPTYING
Post Op Day:
Subjective
-
tolerating pfeiffer
Objective
-
Vital Signs
Temp Pulse Resp BP Pulse Ox
97.7 F 78 20 117/50 95
12/13/24 06:56 12/13/24 06:56 12/13/24 06:56 12/13/24 06:56 12/13/24 06:56
Intake and Output
12/12/24 12/13/24 12/14/24
06:59 06:59 06:59
Intake Total 840 / 840 1190 / 1190
Output Total 900 / 900 600 / 600
Balance -60 / -60 590 / 590
Intake:
Oral fluids 840 / 840 1140 / 1140
IV piggybacks 50 / 50
Output:
Urine, Pfeiffer 500 / 500 600 / 600
Urine, Voided 400 / 400
Laboratory Results
12/13/24 07:25
Review of Systems
-
: No Symptoms
Physical Exam
-
General - well developed, well nourished, no acute distress
Chest - clear bilaterally
Abdomen - soft, non-tender, positive bowel sounds, no CVAT, no incisional pain or distention
Genitalia - normal
Rectal - normal
Skin - warm & dry with no rash
Neuro - AOx3, no motor deficits
Extremities - no clubbing, no cyanosis, no edema
Incision - clean, dry
Dressing - clean, dry, intact
Counseling
-
pfeiffer out [place] am unless pt balks
Care Review
Data Reviewed
Discussed with: Hospitalist, Nursing and Family
[2024-12-13 13:22] LABS: LDH 977 U/L (120-246)
--- NOTE | 2024-12-13 13:25 | W.PN.ID1 ---
Date of Service
Date of Service: December 13, 2024
Today's Communication
- c/w keflex to complete 10 day course through 12/17
Assessment / Plan
Nonpurlent LUE Cellulitis
Pruritus - likely due to xerosis, renal failure
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
KIM on CKD
- c/w keflex to complete 10 day course through 12/17
- Flow now resulted showing 26% blasts. Awaiting bone marrow biopsy report
- ongoing kim, reportedly not a candidate for HD
Chief Complaint
-: Cellulitis
Subjective / Review of Systems
afebrile
bp stable
had bm biopsy pending final results
erythema nearly resolved, underlying xerosis noted
Vital Signs / Physical Exam
Vital Signs
Vital Signs
Temp Pulse Resp BP Pulse Ox
97.7 F 78 20 117/50 95
12/13/24 06:56 12/13/24 06:56 12/13/24 06:56 12/13/24 06:56 12/13/24 06:56
Physical Exam
Constitutional: No Acute Distress
Cardiovascular: Regular Rate and S1/S2; Negative Murmur or Rub
Pulmonary: Clear and Symmetric; Negative Wheezes or Rales
Gastrointestinal: Soft, Non Tender, Non Distended and Normal Bowel Sounds
Skin: Warm, Dry and Rash (minimal residual erythema around a few of the skin tears, prominent xerosis); Negative Jaundice
Objective Data
Lab Data
Lab Results
12/13/24 07:25
PT 15.6 Sec (11.4-14.6) H 12/13/24 11:13
INR 1.18 12/13/24 11:13
APTT 50.4 Sec (23.4-35.0) H 12/13/24 11:13
Estimated Creat Clear 14 ml/min 12/13/24 11:13
Lactic Acid 1.2 mmol/L (0.7-2.0) 12/13/24 07:25
Total Bilirubin 0.4 mg/dl (0.2-1.3) 12/13/24 07:25
AST 31 U/L (17-59) 12/13/24 07:25
ALT < 10 U/L (0-50) 12/13/24 07:25
Alkaline Phosphatase 135 U/L (38-126) H 12/13/24 07:25
Most recent labs reviewed.
Micro Results:
12/08/24 20:18 Urine Culture - Final
Urine NO GROWTH
12/09/24 00:59 MRSA Screen - Final
Nose No Methicillin Resistant Staphylococcus aureus isolated.
[2024-12-13 14:09] VITALS: BP 102/39; PULSE 84; O2SAT 97
[2024-12-13 14:27] LABS: D-Dimer 2.47 ug/mlFEU (0.00-0.50)
--- NOTE | 2024-12-13 15:09 | CM ---
Patient seen at bedside with daughter and physicians. Patient s/p bone marrow biopsy. Patient waiting for results. Patient continues to complain of itchiness and Oncology following patient. Patient PT/OT recommendation is for home health at this
time. Patient family supportive plan for home with VN pending medical treatment plan. CM will continue to follow for discharge planning needs.
Plan; home with VN pending outcome of treatment plan.
[2024-12-13 15:23] VITALS: BP 124/49
--- NOTE | 2024-12-13 16:08 | W.PN.NEPH.PH ---
Today's Communication / Plan
-
Follow BMP
Pfeiffer catheter to be removed tomorrow with voiding trial
Assessment/Plan
-
Impression:
KIM
Hyperkalemia
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
Pruritus
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
Left upper extremity edema and erythema
BPH
HTN
Hyponatremia
Interstitial fibrosis
UA (400mg protein)/no blood trace albumin
Plan:
KIM/Hyperkalemia/Metabolic Acidosis
-Creatinine slowly improving from 4.7 to 4.1 and remains non oliguric
-pfeiffer catheter now in for urinary retention, to be removed tomorrow morning, will need voiding trial
-Fractional secretion of sodium was also low consistent with prerenal stimulus but will hold further fluids due to increasing edema of upper extremity
-Kidney and bladder ultrasound did not reveal hydronephrosis but notable for chronic renal cortical thinning
-Holding lisinopril in setting of acute kidney and
-Maintain sodium bicarbonate to combat metabolic acidosis which should also improve hyperkalemia
-Phosphorus level 5.3 not really high enough to potentiate pruritus, nor is BUN
-Patient would not be a clinically optimal hemodialysis candidate given advanced age and profound hematologic comorbidities. I explained to both the patient's and daughter that given his advanced age and chronic thrombocytopenia, dialysis
would be excessively difficult with ongoing complications of bleeding and further complications from his underlying CML impacting his end-stage renal disease management
There is no need for dialysis today at this time. His underlying acute kidney injury could also be related to his upper extremity cellulitis which is being treated with antibiotic.
Awaiting bone marrow results
-
-
Date of Service: December 13, 2024
CC / HPI / ROS
-
Chief Complaint:
Acute kidney injury
History of Present Illness:
Creatinine down from 4 7-4.2�4.1.
Hemodynamically stable
Review of Systems:
Nonoliguric via Pfeiffer 600cc
No fevers
Severe hearing impairment
Labs
-
Labs:
WBC 44.6 10^3/uL (4.8-10.8) H* 12/13/24 07:25
RBC 2.90 10^6/uL (4.70-6.10) L 12/13/24 07:25
Hgb 8.6 g/dL (13.0-18.0) L 12/13/24 07:25
Hct 27.2 % (39.0-52.0) L 12/13/24 07:25
Plt Count 119 10^3/uL (130-400) L 12/13/24 07:25
eGFR 13.32 12/13/24 11:13
Ckn-[id number]-Kdkjqpcmdqa Pept 578 pg/ml 12/08/24 12:31
Albumin 3.2 g/dl (3.5-5.0) L 12/13/24 07:25
Physical Exam
-
Vital Signs:
Vital Signs
Temp Pulse Resp BP Pulse Ox
98 F 78 18 124/49 98
12/13/24 15:23 12/13/24 15:23 12/13/24 15:23 12/13/24 15:23 12/13/24 15:23
Cardiovascular:: Regular rate and rhythm
Respiratory:: Bilateral: Coarse
Lung Excursion:: Normal
Abdomen:: Nontender and Soft
Bowel Sounds:: Normal
Extremity Edema:: +1: Bilateral: (Left greater than right upper extremity edema)
Pfeiffer Catheter: Yes
Other Findings::
Cellulitic changes of left upper extremity with associated edema
[2024-12-13] MEDS: SENOKOT-S 1 TABLET PO (21:06)
[2024-12-13] MEDS: NEURONTIN 200 MG PO (21:06)
[2024-12-13 23:27] LABS: INR 1.24; PT 16.1 Sec (11.4-14.6)
[2024-12-13 23:28] LABS: Fibrinogen 264 MG/DL (199-459)
[2024-12-13 23:29] LABS: APTT 78.1 Sec (23.4-35.0)
[2024-12-13 23:30] VITALS: BP 112/73
[2024-12-13 23:33] LABS: Blood Urea Nitrogen 44 mg/dl (9-20); Carbon Dioxide 20 mmol/L (22-30); Chloride 105 mmol/L (98-107); Estimated Creatinine Clearance 14 ml/min; Glucose 104 mg/dl (70-99); LDH 1000 U/L (120-246); Phosphorus 3.8 mg/dl (2.5-4.5); Potassium 4.7 mmol/L (3.5-5.1); Sodium 136 mmol/L (135-145); eGFR 13.32
[2024-12-14 06:00] VITALS: BMI 32.6
[2024-12-14 07:18] VITALS: BP 129/59
[2024-12-14 08:58] LABS: Uric Acid 10.4 mg/dl (3.5-8.5)
[2024-12-14] MEDS: TOPROL XL 25 MG PO ×2 (09:08→19:42)
[2024-12-14] MEDS: POLYSPORIN OINTMENT 1 APPLIC TOPICAL (09:08)
[2024-12-14] MEDS: ZYLOPRIM 100 MG PO (09:08)
[2024-12-14] MEDS: HYDREA 500 MG PO (09:17)
[2024-12-14] MEDS: SODIUM BICARBONATE 650 MG PO ×3 (09:17→21:02)
[2024-12-14] MEDS: KEFLEX 500 MG PO ×2 (09:17→19:42)
[2024-12-14] MEDS: PROSCAR 5 MG PO (09:18)
[2024-12-14] MEDS: HYDROCORTISONE 2.5% LOTION 1 APPLIC TOPICAL ×2 (09:18→19:43)
[2024-12-14 09:34] LABS: INR 1.23
[2024-12-14 09:35] LABS: APTT 51.3 Sec (23.4-35.0); Fibrinogen 256 MG/DL (199-459)
--- NOTE | 2024-12-14 09:40 | W.PN.ONC ---
Today's Communication / Plan
-
Antibiotics per ID and primary team
Inpatient bone marrow biopsy completed, final results and flow cytometry currently pending
Definitive management contingent on biopsy results and flow
Continue hydroxyurea at 500mg, renally dosed
continue q12 lysis labs, currently results still pending
Continue gabapentin as needed for pruritus
Okay from oncology perspective to start steroids
Impression
Impression
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
12/09 pathology smear review with 12% blasts, ANC 22.5
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
Inpatient bone marrow biopsy approved and ordered, completed 12/12/2024. Final results currently pending
Elevated uric acid, hyperkalemia and pruritus, not resolving with antibiotics
IKM on CKD. renal US c/w chronic medical renal disease
urinary retention
acute on chronic anemia likely multifactorial with cellulitis, renal insufficiency, dilution, and 1 dose of Hydrea 12/09. No role for iron repleation wtih ferritin >100, no B12 or folate deficiency. Elevated retic and LDH with normal LFTs makes
hemolysis less likely, haptoglobin low
Plan
Plan
Antibiotics per ID and primary team
Inpatient bone marrow biopsy approved, completed 12/12/2024. Final results and flow pending
Further management contingent on biopsy results
Will initiate hydroxyurea after bone marrow biopsy. Typical dose is 1 to 4 g, however with renal impairment 50% dose reduction is recommended
Initiated 500 mg daily hydroxyurea p.o. 12/12/2024
Continue 500 mg daily hydroxyurea as patient's creatinine is 4.1
Will check lysis labs, phosphorus, potassium, uric acid, LDH, coag studies every 12 as initiated hydroxyurea renally dosed
Continue gabapentin for pruritus, up titration per primary team. Up to 300 mg 3 times daily, care for sedation
Okay from oncology perspective to start steroids
Subjective/Objective
Subjective/Objective
Vital Signs:
Vital Signs
Temp Pulse Resp BP Pulse Ox
98.3 F 87 20 129/59 98
12/14/24 07:18 12/14/24 09:08 12/14/24 07:18 12/14/24 09:08 12/14/24 07:18
Lab Results:
Laboratory Data
WBC 44.6 10^3/uL (4.8-10.8) H* 12/13/24 07:25
Hgb 8.6 g/dL (13.0-18.0) L 12/13/24 07:25
Plt Count 119 10^3/uL (130-400) L 12/13/24 07:25
PT 16.1 Sec (11.4-14.6) H 12/13/24 23:06
INR 1.24 12/13/24 23:06
APTT 78.1 Sec (23.4-35.0) H 12/13/24 23:06
eGFR 13.32 12/13/24 23:06
Orders
Orders
Orders From Last 24 Hours
12/13/24 11:00
Hydroxyurea [Hydrea] 500 mg PO DAILY
12/13/24 11:13
BMP [Basic Metabolic Panel] Q12H
D-Dimer Routine
Fibrinogen Q12H
LDH Q12H
PT/INR [Prothrombin Time] Q12H
PTT Q12H
Phos [Phosphorus] Q12H
12/13/24 23:06
BMP [Basic Metabolic Panel] Q12H
Fibrinogen Q12H
LDH Q12H
PT/INR [Prothrombin Time] Q12H
PTT Q12H
Phos [Phosphorus] Q12H
12/14/24 06:54
Uric Acid Q12H
12/14/24 09:12
BMP [Basic Metabolic Panel] Q12H
Fibrinogen Q12H
LDH Q12H
PT/INR [Prothrombin Time] Q12H
PTT Q12H
Phos [Phosphorus] Q12H
12/14/24 18:00
Uric Acid Q12H
12/14/24 22:54
BMP [Basic Metabolic Panel] Q12H
LDH Q12H
Phos [Phosphorus] Q12H
12/14/24 22:57
Fibrinogen Q12H
PT/INR [Prothrombin Time] Q12H
PTT Q12H
12/15/24 06:00
Uric Acid Q12H
12/15/24 10:54
Phos [Phosphorus] Q12H
12/15/24 10:55
BMP [Basic Metabolic Panel] Q12H
12/15/24 10:56
LDH Q12H
12/15/24 10:57
PT/INR [Prothrombin Time] Q12H
PTT Q12H
12/15/24 10:58
Fibrinogen Q12H
12/15/24 22:54
Phos [Phosphorus] Q12H
12/15/24 22:55
BMP [Basic Metabolic Panel] Q12H
12/15/24 22:56
LDH Q12H
12/15/24 22:57
PT/INR [Prothrombin Time] Q12H
PTT Q12H
12/15/24 22:58
Fibrinogen Q12H
--- NOTE | 2024-12-14 10:04 | W.PN.ID1 ---
Date of Service
Date of Service: December 14, 2024
Today's Communication
- c/w keflex to complete 10 day course through 12/17
ID service will no longer actively follow this patient please recall for further questions
Assessment / Plan
Nonpurlent LUE Cellulitis
Pruritus - likely due to xerosis, renal failure
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
KIM on CKD
- c/w keflex to complete 10 day course through 12/17
- Flow now resulted showing 26% blasts. Awaiting bone marrow biopsy report
- ongoing kim, reportedly not a candidate for HD
ID service will no longer actively follow this patient please recall for further questions
Chief Complaint
-: Cellulitis
Subjective / Review of Systems
afebrile
bp stable
no events overnight
voiding trial
Vital Signs / Physical Exam
Vital Signs
Vital Signs
Temp Pulse Resp BP Pulse Ox
98.3 F 87 20 129/59 98
12/14/24 07:18 12/14/24 09:08 12/14/24 07:18 12/14/24 09:08 12/14/24 07:18
Physical Exam
Constitutional: No Acute Distress and Chronically Ill
Cardiovascular: Regular Rate and S1/S2; Negative Murmur or Rub
Pulmonary: Clear and Symmetric; Negative Wheezes or Rales
Gastrointestinal: Soft, Non Tender, Non Distended and Normal Bowel Sounds
Skin: Warm and Dry; Negative Rash or Jaundice
Objective Data
Lab Data
PT 16.0 Sec (11.4-14.6) H 12/14/24 09:12
INR 1.23 12/14/24 09:12
APTT 51.3 Sec (23.4-35.0) H 12/14/24 09:12
Estimated Creat Clear 14 ml/min 12/13/24 23:06
Lactic Acid 1.2 mmol/L (0.7-2.0) 12/13/24 07:25
Total Bilirubin 0.4 mg/dl (0.2-1.3) 12/13/24 07:25
AST 31 U/L (17-59) 12/13/24 07:25
ALT < 10 U/L (0-50) 12/13/24 07:25
Alkaline Phosphatase 135 U/L (38-126) H 12/13/24 07:25
Most recent labs reviewed.
Micro Results:
12/08/24 20:18 Urine Culture - Final
Urine NO GROWTH
12/09/24 00:59 MRSA Screen - Final
Nose No Methicillin Resistant Staphylococcus aureus isolated.
[2024-12-14 10:31] LABS: Hematocrit 27.5 % (39.0-52.0); Hemoglobin 8.4 g/dL (13.0-18.0); Mean Corp Hgb Conc. 30.5 g/dL (33.0-37.0); Mean Corpuscular Hgb 29.2 pg (27.0-31.0); Mean Corpuscular Volume 95.5 fL (80.0-94.0); Mean Platelet Volume 9.8 fL (7.4-10.4); Platelet Count 121 10^3/uL (130-400); Red Blood Cell Count 2.88 10^6/uL (4.70-6.10); Red Cell Dist. Width 20.8 % (11.5-14.5)
[2024-12-14 10:32] LABS: Absolute Neutrophils -Man Diff 16.5 10^3/uL (1.4-6.5); Anisocytosis 1+; Band Neutrophils 8 % (0-3); Eosinophils 15 % (0-6); Hypochromasia 1+; Lymphocytes 28 % (20-51); Metamyelocytes 2 % (-); Monocytes 10 % (2-9); Normal RBC Morphology No; Nucleated Red Blood Cells 1 (-); Platelets Checked Yes; Polychromasia 1+; Segmented Neutrophils 29 % (42-75)
[2024-12-14 10:33] LABS: Basophilic Stippling 1+; Ovalocytes 1+; Total Cells Counted 100
[2024-12-14 10:35] LABS: Blasts 8 % (-); White Blood Cell Count 44.7 10^3/uL (4.8-10.8)
[2024-12-14] MEDS: BENADRYL 50 MG PO ×4 (10:39→23:49)
[2024-12-14 10:47] LABS: Blood Urea Nitrogen 43 mg/dl (9-20); Calcium 7.9 mg/dl (8.4-10.2); Carbon Dioxide 20 mmol/L (22-30); Chloride 105 mmol/L (98-107); Estimated Creatinine Clearance 13 ml/min; Glucose 103 mg/dl (70-99); Phosphorus 3.5 mg/dl (2.5-4.5); Potassium 4.6 mmol/L (3.5-5.1); Sodium 137 mmol/L (135-145); eGFR 12.94
[2024-12-14] MEDS: HEPARIN 5000 UNITS SC ×3 (11:11→23:17)
--- NOTE | 2024-12-14 11:18 | W.PN.HOSP.TC ---
Addendum entered and electronically signed by Annamaria Tristan MD 12/14/24 18:31:
I saw and evaluated the patient independently. I reviewed the resident�s note and agree with findings and plan as documented by Dr. Hooker.
GENERAL: well developed, well nourished, chronically ill appearing male in no apparent distress
HEENT: NC/AT--no O2 requirements
HEART: regular rate and rhythm, +S1, +S2
LUNGS : clear to auscultation bilaterally
ABDOM: soft, nontender, nondistended, + bowel sounds
EXT: no cyanosis, clubbing--bilateral UE swollen with compression wraps
NEUROLOGIC: grossly intact
: pfeiffer cath with hematuria
Pruritus and leukocytosis with 12% blasts up to 26% by flow cytometry, LDH/uric acid elevated, raising concern for accelerated CMML and conversion to AML (leukemia cutis could be skin changes as per onc)--s/p bone marrow biopsy and hydrea now
started-- apprec onc---suspect itching in part related to KIM with creat over 4--no improvement with atarax (stopped)--increasing benadryl, offered steroids but pt declined--cont gabapentin, increase as tolerated, added hydrocortisone cream with
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
Arm swelling and erythema w/ leukocytosis - maybe some dependent cellulitis left upper arm--No DVT in either arm, cont compression therapy-- cefazolin to oral keflex
KIM on CKD - Appears euvolemic--No outlet obstruction on renal u/s--bilateral ureterovesical jets not visualized suggesting severe retention--No PVR on bladder scan--holding lisinopril--has pfeiffer cath--stopped IVF--apprec renal--bicarb added--not
HD candidate--cont home med of finasteride--both pre-renal and post renal etiologies ruled out (no improvement with IVF or pfeiffer placement)-- pfeiffer removed in AM 12/14/24--leaning more towards AML/tumor lysis with elevated LDH, uric acid etc
Essential HTN - holding lisinopril- continue metoprolol
DVT PPX - heparin sq
Code status - full code
Original Note:
Today's Communication/Plan
-
C/w Keflex. Pending BMBx results. C/w hydrocortisone cream/benadryl/gabapentin for itching. OK to resume SC heparin. Voiding trial.
Assessment / Plan
Assessment / Plan
Patient is an 89 yo male w/ Hx of CMML T1, HTN, Stage IV CKD who presented with fatigue, itchiness, SOB & arm swelling
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
#Tumor Lysis Syndrome, possible
#Pruritus
#Leukocytosis
#Lactic Acidemia
- Leukocytosis still in the 40,000s (send out Flow Cytometry showing 26% blasts), LDH elevated, raising concern for CMML conversion to AML.
- C/w Benadryl 50mg prn for pruritus. gabapentin 200mg QHS and continue hydrocortisone cream for pruritus, will monitor for sedation on gabapentin. Pruritus seems to be controlled on current regimen, but if it gets worse, can try IV decadron 4mg Q8.
Gabapentin not to be given in divided doses given patient's CrCl.
12/08 12/11 12/12 12/13 1
LDH [phone]
Uric Acid 10.8 10.7 10.6 10.7 10.4
Phosphorous 5.3 3.7 3.8 3.5
- pending BMBx results.
#Upper Extremity Ecchymosis w/ petechiae
- giving setting of CMML with possible conversion to leukemia vs. worsening of disease and bruising/bleeding, concern for DIC.
- D-Dimer elevated, fibrinogen wnl, INR wnl, PT/PTT elevated but stable.
- Monitor Hgb/Plts, observe for signs hemorrhage.
#Hyperkalemia - K now 4.7 s/p Lokelma & fluids. Will continue to monitor.
#Arm swelling & erythema w/ leukocytosis (dependent cellulitis vs. third spacing secondary to IVF)
- UE Venous Doppler negative for clot BL
- Started on Keflex to continue through 12/17 as per ID
- c/w compression wrapping of BL upper extremity
#KIM on CKD
#Blood tinged urine
- Magneto Repairer 4.2 today, not yet back to baseline, has been hovering above 4 since admission, though prior was 2.5-2.6. Pfeiffer has been taken out, but patient has yet to void. Will continue to observe for now, appreciate nephro reccs.
- If there is component of tumor lysis syndrome, will hope for improvement following Hydroxyurea as above.
- Not sure if bloody urine was a consequence of mechanical trauma from Pfeiffer vs. intrarenal pathology secondary to oncologic disease process (CMML vs. AML)
- continue holding lisinopril
#Urinary Retention
- Renal U/s negative for outlet obstruction. BL UV jets not visualized suggesting severe retention. Not HD candidate at this time.
- Pfeiffer out this AM. Patient has yet to void. Will continue to monitor, appreciate Urology reccs.
- c/w home med of finasteride
#Essential HTN - holding lisinopril as above, c/w metoprolol
Diet - Full
DVT PPX - SC Heparin 5000 q8
Code status - Full code
Anticipated Discharge: 24 - 48 hours
Subjective/Interval History
-
No acute complaints this morning. His itching has improved with the hydrocortisone cream. His pfeiffer was taken out this morning. He has not urinated, but he has no abdominal pain, pelvic pain, back pain or pain in the groin/penis. He has not had any
new fevers, chills, nausea, vomiting, or muscle aches. he has no chest pain or shortness of breath. Swelling in his arms has improved.
Objective Data
-
Labs:
Laboratory Results
12/13/24 12/14/24 12/14/24
23:06 09:12 22:54
WBC 44.7 H*
Hgb 8.4 L
Hct 27.5 L
Plt Count 121 L
PT 16.1 H 16.0 H
INR 1.24 1.23
APTT 78.1 H 51.3 H
Sodium 136 137 Pending
Potassium 4.7 4.6 Pending
Chloride 105 105 Pending
Carbon Dioxide 20 L 20 L Pending
BUN 44 H 43 H Pending
Creatinine 4.1 H* 4.2 H* Pending
Glucose 104 H 103 H Pending
Calcium 8.0 L 7.9 L Pending
12/14/24
22:57
WBC
Hgb
Hct
Plt Count
PT Pending
INR Pending
APTT Pending
Sodium
Potassium
Chloride
Carbon Dioxide
BUN
Creatinine
Glucose
Calcium
Vital Signs:
Vital Signs
Temp Pulse Resp BP Pulse Ox
98.3 F 87 20 129/59 98
12/14/24 07:18 12/14/24 09:08 12/14/24 07:18 12/14/24 09:08 12/14/24 07:18
I&O
12/13/24 12/14/24 12/15/24
06:59 06:59 06:59
Intake Total 1190 / 1190 720 / 720
Output Total 600 / 600 750 / 750
Balance 590 / 590 -30 / -30
Review of Systems
-
History Source: Patient
Constitutional: Denies Fever, Fatigue, Night Sweats or Chills
EENT: Reports No Symptoms Reported
Respiratory: Denies Cough or Trouble Breathing
Cardiac: Denies Chest Pain or Palpitations
Abdomen/GI: Denies Abdominal Pain, Nausea, Vomiting, Diarrhea or Constipated
Breast: Reports N/A
Genitourinary: Reports Difficulty Voiding; Denies Dysuria, Frequency or Flank Pain
Musculoskeletal: Reports Edema (Upper extremities, improving); Denies Joint Pain, Joint Swelling or Muscle Pain
Skin: Reports Itching
Neuro: Denies Headache or Numbness
Hematologic / Lymphatic: Denies Bleeding
Physical Exam
-
General: Well Developed, Well Nourished, No Apparent Distress and Comfortable; Negative Fever or Chills
HEENT: Normocephalic, Atraumatic, Moist Mucous Membranes, Anicteric, [place] Conjunctivae and PERRLA
Respiratory: Crackles (BL lower lung joshi) and Non Labored Respirations; Negative Wheezes or Rhonchi
Cardiac: Regular Rhythm and S1/S2; Negative Murmur or Rub
Breast: N/A
GI: Soft, Nontender, Nondistended and Normal Bowel Sounds
Genito-urinary: No Costovertebral Tender
Musculoskeletal: No Clubbing, No Cyanosis, Edema, Right Upper Extrem (R hand edema much improved) and Edema, Left Upper Extrem (L hand edema much improved. L upper arm erythema improved, without warm or tenderness. Skin is still thickened. )
Neuro: Awake, Alert and Oriented
[2024-12-14 11:37] LABS: LDH 919 U/L (120-246)
--- NOTE | 2024-12-14 12:10 | W.PN.URO.CBU ---
Today's Communication / Plan
-
pfeiffer out monitior output
Assessment / Plan
-
pfeiffer out reconsult if problems
Diagnosis
-
Date of Service: December 14, 2024
-
Patient Diagnosis:
Post Op Day:
Patient Diagnosis:
Post Op Day:
Patient Diagnosis:
Post Op Day:
Patient Diagnosis:
Post Op Day:
Patient Diagnosis:BPH INCOMPLETE BLADDER EMPTYING
Post Op Day:
Subjective
-
conmfortable pfeiffer out
Objective
-
Vital Signs
Temp Pulse Resp BP Pulse Ox
98.3 F 87 20 129/59 98
12/14/24 07:18 12/14/24 09:08 12/14/24 07:18 12/14/24 09:08 12/14/24 07:18
Intake and Output
12/13/24 12/14/24 12/15/24
06:59 06:59 06:59
Intake Total 1190 / 1190 720 / 720
Output Total 600 / 600 750 / 750
Balance 590 / 590 -30 / -30
Intake:
Oral fluids 1140 / 1140 720 / 720
IV piggybacks 50 / 50
Output:
Urine, Pfeiffer 600 / 600 750 / 750
Laboratory Results
12/14/24 09:12
Review of Systems
-
: No Symptoms
Physical Exam
-
General - well developed, well nourished, no acute distress
Chest - clear bilaterally
Abdomen - soft, non-tender, positive bowel sounds, no CVAT, no incisional pain or distention
Genitalia - normal
Rectal - normal
Skin - warm & dry with no rash
Neuro - AOx3, no motor deficits
Extremities - no clubbing, no cyanosis, no edema
Incision - clean, dry
Dressing - clean, dry, intact
Care Review
Data Reviewed
Discussed with: Hospitalist, Nursing and Family
--- NOTE | 2024-12-14 14:01 | W.PN.NEPH.PH ---
Today's Communication / Plan
-
no new recommendations
Pfeiffer catheter out
Voiding trial in progress
Hospice discussion
Assessment/Plan
-
Impression:
KIM
Hyperkalemia
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
Pruritus
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
Left upper extremity edema and erythema
BPH
HTN
Hyponatremia
Interstitial fibrosis
UA (400mg protein)/no blood trace albumin
Plan:
KIM/Hyperkalemia/Metabolic Acidosis
-Creatinine slowly improving from 4.7 to 4.2 and remains non oliguric
-pfeiffer catheter now out voiding trial in place
-Fractional secretion of sodium was also low consistent with prerenal stimulus but will hold further fluids due to increasing edema of upper extremity
-Kidney and bladder ultrasound did not reveal hydronephrosis but notable for chronic renal cortical thinning
-Holding lisinopril in setting of acute kidney and
-Maintain sodium bicarbonate to combat metabolic acidosis which should also improve hyperkalemia
-Phosphorus level 5.3 not really high enough to potentiate pruritus, nor is BUN
-Patient would not be a clinically optimal hemodialysis candidate given advanced age and profound hematologic comorbidities. I previously explained to both the patient's and daughter that given his advanced age and chronic thrombocytopenia,
dialysis would be excessively difficult with ongoing complications of bleeding and further complications from his underlying CML impacting his end-stage renal disease management
Prolonged discussion today about hospice as an appropriate measures with daughter and .
Questions about time to from nephrological standpoint discussed
-
-
Date of Service: December 14, 2024
CC / HPI / ROS
-
Chief Complaint:
Acute kidney injury
History of Present Illness:
Creatinine down from 4 7-4.2�4.2
Hemodynamically stable
Review of Systems:
Nonoliguric via Pfeiffer 600cc
No fevers
Severe hearing impairment
Labs
-
Labs:
WBC 44.7 10^3/uL (4.8-10.8) H* 12/14/24 09:12
RBC 2.88 10^6/uL (4.70-6.10) L 12/14/24 09:12
Hgb 8.4 g/dL (13.0-18.0) L 12/14/24 09:12
Hct 27.5 % (39.0-52.0) L 12/14/24 09:12
Plt Count 121 10^3/uL (130-400) L 12/14/24 09:12
eGFR 12.94 12/14/24 09:12
Eho-Q-Qbuqicgpkkw Pept 578 pg/ml 12/08/24 12:31
Albumin 3.2 g/dl (3.5-5.0) L 12/13/24 07:25
Physical Exam
-
Vital Signs:
Vital Signs
Temp Pulse Resp BP Pulse Ox
98.3 F 87 20 129/59 98
12/14/24 07:18 12/14/24 09:08 12/14/24 07:18 12/14/24 09:08 12/14/24 07:18
Cardiovascular:: Regular rate and rhythm
Respiratory:: Bilateral: Coarse
Lung Excursion:: Normal
Abdomen:: Nontender and Soft
Bowel Sounds:: Normal
Extremity Edema:: +1: Bilateral: (Left greater than right upper extremity edema)
Pfeiffer Catheter: Yes
Other Findings::
Cellulitic changes of left upper extremity with associated edema
[2024-12-14 15:01] VITALS: BP 123/63
--- NOTE | 2024-12-14 15:20 | PTCARENOTE ---
Patient received. AAOx3, denies any pain, SOB, or an discomfort. Pt was oriented to unit. Kassy of care ongoing.
[2024-12-14 15:24] VITALS: BP 133/63; PULSE 91
[2024-12-14] MEDS: POLYSPORIN OINTMENT TOPICAL (19:36)
[2024-12-14] MEDS: SENOKOT-S PO (21:02)
[2024-12-14] MEDS: NEURONTIN 200 MG PO (21:02)
[2024-12-14 23:47] LABS: INR 1.18; PT 15.5 Sec (11.4-14.6)
[2024-12-14 23:48] LABS: Fibrinogen 255 MG/DL (199-459)
[2024-12-14 23:49] LABS: APTT 59.4 Sec (23.4-35.0)
[2024-12-14 23:52] VITALS: BP 98/66
[2024-12-15 00:09] LABS: Blood Urea Nitrogen 45 mg/dl (9-20); Carbon Dioxide 19 mmol/L (22-30); Chloride 103 mmol/L (98-107); Estimated Creatinine Clearance 13 ml/min; Glucose 112 mg/dl (70-99); Phosphorus 3.7 mg/dl (2.5-4.5); Potassium 4.8 mmol/L (3.5-5.1); Sodium 134 mmol/L (135-145); Uric Acid 10.2 mg/dl (3.5-8.5); eGFR 12.94
[2024-12-15 00:18] LABS: LDH 1012 U/L (120-246)
[2024-12-15 05:27] VITALS: BMI 32.5
--- NOTE | 2024-12-15 06:55 | W.PN.HOSP.TC ---
Addendum entered and electronically signed by Annamaria Tristan MD 12/15/24 17:30:
I saw and evaluated the patient independently. I reviewed the resident�s note and agree with findings and plan as documented by Dr. Hooker.
GENERAL: well developed, well nourished, chronically ill appearing male in no apparent distress
HEENT: NC/AT--no O2 requirements
HEART: regular rate and rhythm, +S1, +S2
LUNGS : clear to auscultation bilaterally
ABDOM: soft, nontender, nondistended, + bowel sounds
EXT: no cyanosis, clubbing--bilateral UE swollen with compression wraps improved
NEUROLOGIC: grossly intact
: pfeiffer cath with hematuria
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
hospice, for d/c home 12/16/24
Arm swelling and erythema w/ leukocytosis - maybe some dependent cellulitis left upper arm--No DVT in either arm, cont compression therapy-- cefazolin to oral keflex through 12/17
KIM on CKD - Appears euvolemic--No outlet obstruction on renal u/s--bilateral ureterovesical jets not visualized suggesting severe retention--No PVR on bladder scan--holding lisinopril--has pfeiffer cath--stopped IVF--apprec renal--bicarb added--not
HD candidate--cont home med of finasteride--both pre-renal and post renal etiologies ruled out (no improvement with IVF or pfeiffer placement)-- pfeiffer removed in AM 12/14/24 but needed to be replaced for both continued acute retention and end of life
care--leaning more towards AML/tumor lysis as cause of KIM
Essential HTN - holding lisinopril- continue metoprolol
DVT PPX - heparin sq
Code status - full code
Addendum entered and electronically signed by Manuelito Hooker MD, Resident 12/15/24 17:17:
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 Planning for discharge home tomorrow.
Original Note:
Today's Communication/Plan
-
Pending hospice discussion and next steps of treatment with family. If they choose to pursue therapy, will likely need to transfer.
Assessment / Plan
Assessment / Plan
Patient is an 89 yo male w/ Hx of CMML T1, HTN, Stage IV CKD who presented with fatigue, itchiness, SOB & arm swelling
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
#Leukocytosis
- Leukocytosis still in the 40,000s (send out Flow Cytometry showing 26% blasts), LDH elevated, raising concern for CMML conversion to AML.
- BMBx results Findings suspicious for AML w/ 36.9% Myeloid blasts.
- Pending decision with family about next course of action and whether or not they want to pursue treatment, though family at this time is leaning towards hospice care. Will meet with hospice nurse this afternoon to discuss.
#Tumor Lysis Syndrome, clinical
#Lactic Acidemia
#Elevated Uric Acid
#Hyperphosphatemia
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
- Will follow chemistry for now, pending discussion with family on next course of action; likely, hospice.
#Pruritus, likely secondary to AML vs. Tumor Lysis
- C/w Benadryl 50mg prn for pruritus. gabapentin 200mg QHS and continue hydrocortisone cream for pruritus, will monitor for sedation on gabapentin. Pruritus seems to be controlled on current regimen, but if it gets worse, can try IV decadron 4mg Q8.
Gabapentin not to be given in divided doses given patient's CrCl.
#Upper Extremity Ecchymosis w/ petechiae
- giving setting of CMML with possible conversion to leukemia vs. worsening of disease and bruising/bleeding, concern for DIC.
- D-Dimer elevated, fibrinogen wnl, INR wnl, PT/PTT elevated but stable.
- Monitor Hgb/Plts, observe for signs hemorrhage.
#Hyperkalemia, stable - s/p Lokelma & fluids. Will continue to monitor. Appreciate nephro reccs
#Arm swelling & erythema w/ leukocytosis (dependent cellulitis vs. third spacing secondary to IVF)
- BL UE Venous Doppler negative for clot
- On Keflex to continue through 12/17 as per ID
- c/w compression wrapping of BL upper extremity as needed
#KIM on CKD
#Gross Hematuria
- continue holding lisinopril
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
- Will continue to observe for now, appreciate nephro reccs.
- If there is component of tumor lysis syndrome, will hope for improvement following Hydroxyurea as above.
- Not sure if hematuria was a consequence of mechanical trauma from Pfeiffer vs. intrarenal pathology secondary to oncologic disease process
#Urinary Retention
- Renal U/s negative for outlet obstruction. BL UV jets not visualized suggesting severe retention. Not HD candidate at this time.
- Pfeiffer out, patient was able to spontaneously void hever colored urine. Will continue to monitor, appreciate Urology reccs.
- c/w home med of finasteride
#Essential HTN - holding lisinopril as above, c/w metoprolol
Diet - Full
DVT PPX - SC Heparin 5000 q8
Code status - Full code
Anticipated Discharge: 24 - 48 hours
Subjective/Interval History
-
Feeling well this morning. Overnight had to be straight cathed due to inability to void. He reports no B symptoms, no low back pain or flank pain. His itching has been managed well. He has no shortness of breath, chest pain, palpitations.
Objective Data
-
Labs:
Laboratory Results
12/14/24 12/15/24 12/15/24
23:19 06:00 10:54
WBC Pending
Hgb Pending
Hct Pending
Plt Count Pending
PT 15.5 H
INR 1.18
APTT 59.4 H
Sodium 134 L Pending
Potassium 4.8 Pending
Chloride 103 Pending
Carbon Dioxide 19 L Pending
BUN 45 H Pending
Creatinine 4.2 H* Pending
Glucose 112 H Pending
Calcium 8.0 L Pending
12/15/24 12/15/24 12/15/24
10:57 22:54 22:57
WBC
Hgb
Hct
Plt Count
PT Pending Pending
INR Pending Pending
APTT Pending Pending
Sodium Pending
Potassium Pending
Chloride Pending
Carbon Dioxide Pending
BUN Pending
Creatinine Pending
Glucose Pending
Calcium Pending
Vital Signs:
Vital Signs
Temp Pulse Resp BP Pulse Ox
97.7 F 108 20 98/66 95
12/14/24 23:52 12/14/24 23:52 12/14/24 23:52 12/14/24 23:52 12/14/24 23:52
I&O
12/13/24 12/14/24 12/15/24
06:59 06:59 06:59
Intake Total 1190 / 1190 720 / 720 840 / 840
Output Total 600 / 600 750 / 750
Balance 590 / 590 -30 / -30 840 / 840
Review of Systems
-
History Source: Patient
Constitutional: Denies Fever, Night Sweats or Chills
EENT: Reports No Symptoms Reported
Respiratory: Denies Cough, Trouble Breathing or Wheezing
Cardiac: Denies Chest Pain or Palpitations
Abdomen/GI: Denies Abdominal Pain, Nausea, Vomiting or Diarrhea
Breast: Reports N/A
Genitourinary: Reports Difficulty Voiding; Denies Flank Pain
Musculoskeletal: Denies Joint Pain, Joint Swelling or Muscle Pain
Skin: Reports Itching; Denies Rash
Neuro: Reports No Symptoms
Physical Exam
-
General: Well Developed, Well Nourished, No Apparent Distress and Appears Chronically Ill; Negative Fever or Chills
HEENT: Normocephalic, Atraumatic, Moist Mucous Membranes, Anicteric, [place] Conjunctivae and PERRLA
Respiratory: Crackles (BL LL, improved from yesterday); Negative Wheezes or Rhonchi
Cardiac: Regular Rhythm and S1/S2; Negative Murmur or Tachycardic
Breast: N/A
GI: Soft, Nontender, Nondistended and Normal Bowel Sounds
Genito-urinary: No Costovertebral Tender and Other (Hever colored Urine via straight cath overnight. Residual 290cc. )
Musculoskeletal: No Clubbing, No Cyanosis and No Edema
Skin: Dry (Dry thickened skin in MIRTA arm, improved )
Neuro: Awake, Alert and Oriented
Hematologic / Lymphatic: No Lymphadenopathy (No cervical chain lymphadenopathy/supraclavicular lymphadenopathy)
[2024-12-15 07:15] VITALS: BP 127/57
[2024-12-15] MEDS: BENADRYL 50 MG PO ×4 (08:00→23:09)
--- NOTE | 2024-12-15 09:09 | W.PN.ONC ---
Documented by User: Manny Lomax DO, Resident 12/15/24 12:38
Today's Communication / Plan
-
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
Continue renally dosed hydroxyurea, creatinine approximately 4
will initiated conversation regarding chemo treatment options and GOC. Pt and reports wanting to peruse comfort care
scullion chief consulted
Continue monitoring every 12h lysis labs and daily CBC with differential
Labs demonstrate markedly elevated LDH with an upward trend, hemoglobin trending downwards. Uric acid stable, potassium stable
Transfuse if hemoglobin drops below 7
Okay from oncology standpoint to continue steroids
Symptomatic management of pruritus per primary team
Antibiotics per primary team and ID
Impression
Impression
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
12/09 pathology smear review with 12% blasts, ANC 22.5
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
Inpatient bone marrow biopsy approved and ordered, completed 12/12/2024. Final results currently pending
Elevated uric acid, hyperkalemia and pruritus, not resolving with antibiotics
KIM on CKD. renal US c/w chronic medical renal disease
urinary retention
acute on chronic anemia likely multifactorial with cellulitis, renal insufficiency, dilution, and 1 dose of Hydrea 12/09. No role for iron repleation wtih ferritin >100, no B12 or folate deficiency. Elevated retic and LDH with normal LFTs makes
hemolysis less likely, haptoglobin low
Plan
Plan
Antibiotics per ID and primary team
Inpatient bone marrow biopsy approved, completed 12/12/2024. 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
will initiate conversation regarding chemo treatment options and GOC
Initiated 500 mg daily hydroxyurea p.o. 12/13/2024
Continue 500 mg daily hydroxyurea as patient's creatinine is 4.1
Will check lysis labs, phosphorus, potassium, uric acid, LDH, coag studies every 12 as initiated hydroxyurea renally dosed
Coag studies demonstrate normal fibrinogen, lysis labs demonstrate potassium within normal limits, uric acid slightly elevated.
LDH markedly elevated 1012, with an upward trend
Hemoglobin is downtrending
Continue gabapentin for pruritus, up titration per primary team. Up to 300 mg 3 times daily, care for sedation
Okay from oncology perspective to start steroids
Subjective/Objective
Subjective/Objective
Vital Signs:
Vital Signs
Temp Pulse Resp BP Pulse Ox
98 F 86 20 127/57 97
12/15/24 07:15 12/15/24 07:15 12/15/24 07:15 12/15/24 07:15 12/15/24 07:15
Lab Results:
Laboratory Data
WBC 44.7 10^3/uL (4.8-10.8) H* 12/14/24 09:12
Hgb 8.4 g/dL (13.0-18.0) L 12/14/24 09:12
Plt Count 121 10^3/uL (130-400) L 12/14/24 09:12
PT 15.5 Sec (11.4-14.6) H 12/14/24 23:19
INR 1.18 12/14/24 23:19
APTT 59.4 Sec (23.4-35.0) H 12/14/24 23:19
eGFR 12.94 12/14/24 23:19
Orders
Orders
Orders From Last 24 Hours
12/14/24 09:12
BMP [Basic Metabolic Panel] Q12H
Fibrinogen Q12H
LDH Q12H
PT/INR [Prothrombin Time] Q12H
PTT Q12H
Phos [Phosphorus] Q12H
12/14/24 23:19
BMP [Basic Metabolic Panel] Q12H
Fibrinogen Q12H
LDH Q12H
PT/INR [Prothrombin Time] Q12H
PTT Q12H
Phos [Phosphorus] Q12H
Uric Acid Routine
12/15/24 06:00
Uric Acid Q12H
12/15/24 10:54
BMP [Basic Metabolic Panel] Q12H
LDH Q12H
Phos [Phosphorus] Q12H
12/15/24 10:57
Fibrinogen Q12H
PT/INR [Prothrombin Time] Q12H
PTT Q12H
12/15/24 22:54
BMP [Basic Metabolic Panel] Q12H
LDH Q12H
Phos [Phosphorus] Q12H
12/15/24 22:57
Fibrinogen Q12H
PT/INR [Prothrombin Time] Q12H
PTT Q12H

Documented by User: Vazquez Nath MD 12/15/24 15:45
Plan
Plan
Antibiotics per ID and primary team
Inpatient bone marrow biopsy approved, completed 12/12/2024. 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
will initiate conversation regarding chemo treatment options and GOC
Initiated 500 mg daily hydroxyurea p.o. 12/13/2024
Continue 500 mg daily hydroxyurea as patient's creatinine is 4.1
Will check lysis labs, phosphorus, potassium, uric acid, LDH, coag studies every 12 as initiated hydroxyurea renally dosed
Coag studies demonstrate normal fibrinogen, lysis labs demonstrate potassium within normal limits, uric acid slightly elevated.
LDH markedly elevated 1012, with an upward trend
Hemoglobin is downtrending
Continue gabapentin for pruritus, up titration per primary team. Up to 300 mg 3 times daily, care for sedation
Okay from oncology perspective to start steroids
Oncology Addendum:
Patient seen and evaluated and agree w/ BANK EXAMINER note and plan as outlined
-h/o CMML - now w/ transformation to AML w/ significant peripheral blood and bone marrow blast percentage
-discussed goals of care w/ patient and family in detail
-outlined supportive care options - patient and family are interested in a transition to hospice care at home
-hospice consult
will continue to follow
--- NOTE | 2024-12-15 09:28 | W.PN.URO.CBU ---
Today's Communication / Plan
-
leave pfeiffer out may need to have bladder over 600cc to inotiate void so no pfeiffer unles volume over 600cc and no void or pain distetnion try and have pt void ie sit on commode etc before repalcing a 16 or 18 fr pfeiffer but if no void do not
straight cath but leave pfeiffer
Assessment / Plan
-
pfeiffer out but did not void may need hifgrt filling volume lucila refrain from straight vcath unless pvr over 600c or pain distention
Diagnosis
-
Date of Service: December 15, 2024
-
Patient Diagnosis:
Post Op Day:
Patient Diagnosis:
Post Op Day:
Patient Diagnosis:
Post Op Day:
Patient Diagnosis:
Post Op Day:
Patient Diagnosis:
Post Op Day:
Patient Diagnosis:BPH INCOMPLETE BLADDER EMPTYING
Post Op Day:
Subjective
-
pt did not void but no urge straight cathed 400c
Objective
-
Vital Signs
Temp Pulse Resp BP Pulse Ox
98 F 86 20 127/57 97
12/15/24 07:15 12/15/24 07:15 12/15/24 07:15 12/15/24 07:15 12/15/24 07:15
Intake and Output
12/14/24 12/15/24 12/16/24
06:59 06:59 06:59
Intake Total 720 / 720 840 / 840
Output Total 750 / 750
Balance -30 / -30 840 / 840
Intake:
Oral fluids 720 / 720 840 / 840
Output:
Urine, Pfeiffer 750 / 750
Other:
Number of approximated MODERATE 2
amounts of urine
Review of Systems
-
: Difficulty Voiding
Physical Exam
-
General - well developed, well nourished, no acute distress
Chest - clear bilaterally
Abdomen - soft, non-tender, positive bowel sounds, no CVAT, no incisional pain or distention
Genitalia - normal
Rectal - normal
Skin - warm & dry with no rash
Neuro - AOx3, no motor deficits
Extremities - no clubbing, no cyanosis, no edema
Incision - clean, dry
Dressing - clean, dry, intact
Care Review
Data Reviewed
Discussed with: Nursing
[2024-12-15] MEDS: KEFLEX 500 MG PO ×2 (10:05→21:08)
[2024-12-15] MEDS: PROSCAR 5 MG PO (10:05)
[2024-12-15] MEDS: TOPROL XL 25 MG PO ×2 (10:05→21:12)
[2024-12-15] MEDS: ZYLOPRIM 100 MG PO (10:06)
[2024-12-15] MEDS: HYDREA 500 MG PO (10:06)
[2024-12-15] MEDS: SODIUM BICARBONATE 650 MG PO ×3 (10:06→21:09)
[2024-12-15] MEDS: HEPARIN 5000 UNITS SC ×2 (10:06→17:08)
[2024-12-15] MEDS: POLYSPORIN OINTMENT 1 APPLIC TOPICAL (10:07)
[2024-12-15] MEDS: HYDROCORTISONE 2.5% LOTION 1 APPLIC TOPICAL ×2 (10:07→21:08)
[2024-12-15 10:57] LABS: INR 1.19; PT 15.4 Sec (11.4-14.6)
[2024-12-15 10:58] LABS: Fibrinogen 264 MG/DL (199-459)
[2024-12-15 10:59] LABS: APTT 46.3 Sec (23.4-35.0)
[2024-12-15 11:12] LABS: Hemoglobin 8.5 g/dL (13.0-18.0); Mean Corp Hgb Conc. 31.5 g/dL (33.0-37.0); Mean Corpuscular Hgb 30.1 pg (27.0-31.0); Mean Corpuscular Volume 95.7 fL (80.0-94.0); Mean Platelet Volume 10.7 fL (7.4-10.4); Platelet Count 122 10^3/uL (130-400); Red Blood Cell Count 2.82 10^6/uL (4.70-6.10); Red Cell Dist. Width 20.6 % (11.5-14.5); White Blood Cell Count 49.1 10^3/uL (4.8-10.8)
[2024-12-15 11:45] LABS: Uric Acid 10.6 mg/dl (3.5-8.5)
[2024-12-15 11:48] LABS: Absolute Neutrophils -Man Diff 12.7 10^3/uL (1.4-6.5); Band Neutrophils 2 % (0-3); Eosinophils 10 % (0-6); Lymphocytes 40 % (20-51); Monocytes 10 % (2-9); Segmented Neutrophils 24 % (42-75)
[2024-12-15 11:49] LABS: Metamyelocytes 5 % (-); Myelocytes 1 % (-)
[2024-12-15 11:50] LABS: Blasts 8 % (-)
[2024-12-15 11:53] LABS: Platelets Checked Yes
[2024-12-15 11:54] LABS: Anisocytosis 1+; Hypochromasia 1+; Normal RBC Morphology No; Polychromasia 1+
[2024-12-15 11:56] LABS: Blood Urea Nitrogen 45 mg/dl (9-20); Calcium 7.9 mg/dl (8.4-10.2); Carbon Dioxide 20 mmol/L (22-30); Chloride 104 mmol/L (98-107); Estimated Creatinine Clearance 14 ml/min; Glucose 97 mg/dl (70-99); Potassium 4.6 mmol/L (3.5-5.1); Sodium 136 mmol/L (135-145); Total Cells Counted 100; eGFR 13.32
[2024-12-15 12:07] LABS: LDH 1071 U/L (120-246)
--- NOTE | 2024-12-15 13:28 | W.PN.NEPH.PH ---
Today's Communication / Plan
-
will follow peripherally with hospice consult pending
Assessment/Plan
-
Impression:
KIM
Hyperkalemia
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
Pruritus
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
Left upper extremity edema and erythema
BPH
HTN
Hyponatremia
Interstitial fibrosis
UA (400mg protein)/no blood trace albumin
Plan:
KIM/Hyperkalemia/Metabolic Acidosis
-Creatinine slowly improving from 4.7 to 4.2 and remains non oliguric
-pfeiffer catheter now out voiding trial in place
-Fractional secretion of sodium was also low consistent with prerenal stimulus but will hold further fluids due to increasing edema of upper extremity
-Kidney and bladder ultrasound did not reveal hydronephrosis but notable for chronic renal cortical thinning
-Holding lisinopril in setting of acute kidney and
-Maintain sodium bicarbonate to combat metabolic acidosis which should also improve hyperkalemia
-Phosphorus level 5.3 not really high enough to potentiate pruritus, nor is BUN
-Patient would not be a clinically optimal hemodialysis candidate given advanced age and profound hematologic comorbidities. I previously explained to both the patient's and daughter that given his advanced age and chronic thrombocytopenia,
dialysis would be excessively difficult with ongoing complications of bleeding and further complications from his underlying CML impacting his end-stage renal disease management
flow demonstrate AML transformation with 36% myleoid blasts per oncology= family wants to pursue a comfort care hospice was consult. I will follow peripherally
-
-
Date of Service: December 15, 2024
CC / HPI / ROS
-
Chief Complaint:
Acute kidney injury
History of Present Illness:
Creatinine down from 4 7-4.2�4.2
Hemodynamically stable
Review of Systems:
No fevers
Severe hearing impairment
Labs
-
Labs:
WBC 49.1 10^3/uL (4.8-10.8) H* 12/15/24 10:30
RBC 2.82 10^6/uL (4.70-6.10) L 12/15/24 10:30
Hgb 8.5 g/dL (13.0-18.0) L 12/15/24 10:30
Hct 27.0 % (39.0-52.0) L 12/15/24 10:30
Plt Count 122 10^3/uL (130-400) L 12/15/24 10:30
Sodium Cancelled 12/15/24 22:54
Potassium Cancelled 12/15/24 22:54
Chloride Cancelled 12/15/24 22:54
Carbon Dioxide Cancelled 12/15/24 22:54
BUN Cancelled 12/15/24 22:54
Creatinine Cancelled 12/15/24 22:54
eGFR Cancelled 12/15/24 22:54
Glucose Cancelled 12/15/24 22:54
Calcium Cancelled 12/15/24 22:54
Yae-N-Spiuxsiqovn Pept 578 pg/ml 12/08/24 12:31
Albumin 3.2 g/dl (3.5-5.0) L 12/13/24 07:25
Physical Exam
-
Vital Signs:
Vital Signs
Temp Pulse Resp BP Pulse Ox
98 F 86 20 127/57 97
12/15/24 07:15 12/15/24 10:05 12/15/24 07:15 12/15/24 10:05 12/15/24 07:15
Cardiovascular:: Regular rate and rhythm
Respiratory:: Bilateral: Coarse
Lung Excursion:: Normal
Abdomen:: Nontender and Soft
Bowel Sounds:: Normal
Extremity Edema:: +1: Bilateral: (Left greater than right upper extremity edema)
Pfeiffer Catheter: Yes
Other Findings::
Cellulitic changes of left upper extremity with associated edema
--- NOTE | 2024-12-15 13:31 | HOSPNOTE ---
This [facility] met with patient to provide hospice intro. Discussed hospice services with the patient and family, all state in agreement with hospice philosophy and wish for hospice services at home. Discussed that [facility] does not provide services out to [place], family verbalizes understanding. Karin Ray notified that patient wishes for hospice, and would prefer to be discharged as soon as possible. [facility] signing off of this patient.
[2024-12-15 14:43] VITALS: BP 141/63; O2SAT 94
[2024-12-15 15:03] VITALS: BP 93/64
--- NOTE | 2024-12-15 16:54 | CM ---
Patient seen at bedside with and daughter. Patient family requested referral to [facility] and patient family accepted Hospice to see patient tomorrow at home after 4pm. Patient family to transport patient home. Please fax to
[phone]/call to [facility] with any concerns [phone] or [phone]. CM will continue to follow for discharge planning needs.
Plan; home with [facility] tomorrow
[2024-12-15 18:37] LABS: INR 1.18; PT 15.3 Sec (11.4-14.6)
[2024-12-15 18:38] LABS: Fibrinogen 257 MG/DL (199-459)
[2024-12-15 18:39] LABS: APTT 46.8 Sec (23.4-35.0)
[2024-12-15 18:54] LABS: Blood Urea Nitrogen 44 mg/dl (9-20); Calcium 7.7 mg/dl (8.4-10.2); Carbon Dioxide 21 mmol/L (22-30); Chloride 101 mmol/L (98-107); Estimated Creatinine Clearance 14 ml/min; Glucose 121 mg/dl (70-99); Potassium 4.6 mmol/L (3.5-5.1); Sodium 134 mmol/L (135-145); eGFR 13.32
[2024-12-15 19:06] LABS: LDH 999 U/L (120-246)
[2024-12-15] MEDS: POLYSPORIN OINTMENT TOPICAL ×2 (20:00→21:08)
[2024-12-15] MEDS: NEURONTIN 200 MG PO (21:09)
[2024-12-15] MEDS: SENOKOT-S PO (22:06)
[2024-12-15 23:15] VITALS: BP 126/61
[2024-12-15 23:59] VITALS: BP 126/61
[2024-12-16] MEDS: HEPARIN 5000 UNITS SC ×2 (01:06→07:54)
[2024-12-16 06:00] VITALS: BMI 32.1
[2024-12-16 06:04] LABS: Hematocrit 23.9 % (39.0-52.0); Hemoglobin 7.5 g/dL (13.0-18.0); Mean Corp Hgb Conc. 31.4 g/dL (33.0-37.0); Mean Corpuscular Hgb 29.9 pg (27.0-31.0); Mean Corpuscular Volume 95.2 fL (80.0-94.0); Platelet Count 116 10^3/uL (130-400); Red Blood Cell Count 2.51 10^6/uL (4.70-6.10); Red Cell Dist. Width 20.4 % (11.5-14.5); White Blood Cell Count 49.4 10^3/uL (4.8-10.8)
[2024-12-16 07:15] VITALS: BP 96/51
--- NOTE | 2024-12-16 07:41 | W.PN.HOSP.TC ---
Today's Communication/Plan
-
home with hospice
Assessment / Plan
Assessment / Plan
pt is an 89 year old male
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
improvement with atarax (stopped)--increasing benadryl, offered steroids but pt declined--cont gabapentin, increase as tolerated, added hydrocortisone cream with relief--cont allopurinol --pt and family decided to pursue hospice--d/c home 12/16/24
Arm swelling and erythema w/ leukocytosis - maybe some dependent cellulitis left upper arm--No DVT in either arm, cont compression therapy-- cefazolin to oral keflex
KIM on CKD - Appears euvolemic--No outlet obstruction on renal u/s--bilateral ureterovesical jets not visualized suggesting severe retention--No PVR on bladder scan--holding lisinopril--has pfeiffer cath--stopped IVF--apprec renal--bicarb added--not
HD candidate--cont home med of finasteride--both pre-renal and post renal etiologies ruled out (no improvement with IVF or pfeiffer placement)-- pfeiffer removed in AM 12/14/24 but needed to be replaced for both continued acute retention and end of life
care--leaning more towards AML/tumor lysis as cause of KIM
Essential HTN - holding lisinopril- continue metoprolol
DVT PPX - heparin sq
Code status - full code
Anticipated Discharge: Today
Subjective/Interval History
-
Date of Service: December 16, 2024
pt ready for d/c
Objective Data
-
Labs:
Laboratory Results
12/16/24
05:29
WBC 49.4 H*
Hgb 7.5 L
Hct 23.9 L
Plt Count 116 L
Vital Signs:
max temp for 24 hours
12/15/24
23:15
Temp 98.4 F
Vital Signs
Temp Pulse Resp BP Pulse Ox
98.4 F 89 16 126/61 93
12/15/24 23:15 12/15/24 23:15 12/15/24 23:15 12/15/24 23:15 12/15/24 23:15
I&O
12/15/24 12/16/24 12/17/24
06:59 06:59 06:59
Intake Total 840 / 840 480 / 480 480 / 480
Output Total 625 / 625 550 / 550
Balance 840 / 840 -145 / -145 -70 / -70
Review of Systems
-
All other systems: Reviewed and negative
Physical Exam
-
General: Well Developed, Well Nourished and No Apparent Distress
HEENT: Normocephalic and Atraumatic
Respiratory: Clear to Auscultation; Negative Wheezes or Rhonchi
Cardiac: Regular Rhythm and S1/S2; Negative Murmur
GI: Soft, Nontender, Nondistended and Normal Bowel Sounds
Genito-urinary: Pfeiffer
Musculoskeletal: No Clubbing, No Cyanosis and No Edema
Skin: Other (redness and swelling of bilateral arms improved)
Psych: Calm
[2024-12-16] MEDS: HYDREA 500 MG PO (07:54)
[2024-12-16] MEDS: SODIUM BICARBONATE 650 MG PO (07:54)
[2024-12-16] MEDS: ZYLOPRIM 100 MG PO (07:54)
[2024-12-16] MEDS: PROSCAR 5 MG PO (07:54)
[2024-12-16] MEDS: KEFLEX 500 MG PO (07:54)
[2024-12-16] MEDS: TOPROL XL PO (07:55)
[2024-12-16] MEDS: BENADRYL 50 MG PO (07:55)
[2024-12-16] MEDS: POLYSPORIN OINTMENT 1 APPLIC TOPICAL (07:55)
[2024-12-16] MEDS: HYDROCORTISONE 2.5% LOTION 1 APPLIC TOPICAL (08:00)
--- NOTE | 2024-12-16 08:38 | CM ---
Addendum entered by Karin Ray 12/16/24 10:34:
Patient here to transport patient IMM completed and given to nurse per . CM will continue to follow for discharge planning needs
Addendum entered by Karin Ray 12/16/24 08:39:
Please fax to [phone]/call to [facility] [place] with any concerns [phone] or [phone].
Original Note:
Patient to come and sign IMM, Patient hospice to meet at 4:00 at home. Family to transport. CM will continue to follow for discharge planning needs.
Plan; home with [facility] to start later today
[2024-12-16 09:37] LABS: Absolute Neutrophils -Man Diff 16.7 10^3/uL (1.4-6.5); Band Neutrophils 5 % (0-3); Lymphocytes 32 % (20-51); Segmented Neutrophils 29 % (42-75)
[2024-12-16 09:38] LABS: Eosinophils 3 % (0-6); Metamyelocytes 1 % (-); Myelocytes 3 % (-)
[2024-12-16 09:39] LABS: Anisocytosis 1+; Hypochromasia 1+; Monocytes 14 % (2-9); Normal RBC Morphology No; Nucleated Red Blood Cells 2 (-); Platelets Checked Yes
[2024-12-16 09:40] LABS: Ovalocytes Slight
[2024-12-16 09:42] LABS: Total Cells Counted 100
[2024-12-16 09:44] LABS: Blasts 13 % (-)
== END 2024-12-16 10:40 | disposition hospice, home (50) | DRG 683 ==
LOC: 4 EAST ACU 20:17
PROVIDERS: Internal Medicine Hematology & Oncology; Nurse Practitioner Acute Care; Physician Assistant; ADMITTING PHYSICIAN Internal Medicine; ATTENDING PHYSICIAN Internal Medicine; CONSULT PHYSICIAN Internal Medicine Hematology & Oncology; CONSULT PHYSICIAN Specialist; CONSULT PHYSICIAN Student in an Organized Health Care Education/Training Program; EMERGENCY PHYSICIAN Emergency Medicine; FAMILY PHYSICIAN Family Medicine
PROC: 079T3ZX Drainage of Bone Marrow, Percutaneous Approach, Diagnostic (ICD-10-PCS; 2024-12-12)
DX: N17.9 Acute kidney failure, unspecified (principal); C92.10 Chronic myeloid leukemia, BCR/ABL-positive, not having achieved remission; L03.114 Cellulitis of left upper limb; E87.1 Hypo-osmolality and hyponatremia; E87.20 Acidosis, unspecified; N18.4 Chronic kidney disease, stage 4 (severe); L29.9 Pruritus, unspecified; E87.5 Hyperkalemia; I12.9 Hypertensive chronic kidney disease with stage 1 through stage 4 chronic kidney disease, or unspecified chronic kidney disease
CPT/HCPCS: 88305; 88311; 88312; 38222; 51702; 71046; 76770; 77012; 80048; 80053; 81003; 81015; 82550; 82570; 82607; 82728; 82746; 83010; 83540; 83550; 83605; 83615; 83735; 83880; 84100; 84156; 84300; 84550; 85025; 85027; 85045; 85379; 85384; 85610; 85730; 87070; 87086; 88313; 93005; 93971; 96361; 96374; 97116; 97163; 97166; 97530; 99285